=== PATIENT | female | born 1975 | race Caucasian/White ===

== ENCOUNTER 2020-01-20 14:05 | Outpatient (REF) | payer OTHER, SELFPAY | END 2020-01-20 14:06 | disposition home or self-care (01) | LOC: HO.LNP 14:05 | PROVIDERS: Visit Provider Internal Medicine | DX: Z20.828 Contact with and (suspected) exposure to other viral communicable diseases (principal) | CPT/HCPCS: U0003 ==

== ENCOUNTER 2020-02-24 17:38 | Outpatient (REF) | payer OTHER, SELFPAY | END 2020-02-24 17:39 | disposition home or self-care (01) | LOC: HO.LNP 17:38 | PROVIDERS: Visit Provider Internal Medicine | DX: Z20.822 Contact with and (suspected) exposure to COVID-19 (principal) | CPT/HCPCS: U0003 ==

== ENCOUNTER 2020-08-23 08:07 | Outpatient (REF) | payer BC, SELFPAY ==
[2020-08-25 21:27] LABS: HPV mRNA E6/E7 rflx Not Detected (Not Detected)
== END 2020-08-23 08:08 | disposition home or self-care (01) ==
LOC: HO.LAB 08:07
PROVIDERS: PCP Internal Medicine; Visit Provider Obstetrics & Gynecology
DX: Z01.419 Encounter for gynecological examination (general) (routine) without abnormal findings (principal); Z90.710 Acquired absence of both cervix and uterus
CPT/HCPCS: 87624; 88142

== ENCOUNTER 2020-09-17 15:25 | Outpatient (REF) | payer BC, SELFPAY ==
--- NOTE | ~2020-09-17 | MM_ITS ---
EXAMINATION: MM SCREENING DIGITAL BREAST TOMOSYNTHESIS, BILATERAL CLINICAL INFORMATION: Screening. Asymptomatic. Benign left stereotactic biopsy 03/15/2018 (breast parenchyma with fibrocystic changes, usual ductal hyperplasia, stromal fibrosis and microcalcifications). The lifetime risk of breast cancer based on the Tyrer-Cuzick Model is 23%. COMPARISON: Mammography: 09/12/2019, 03/15/2019 TECHNIQUE: Digital breast tomosynthesis is performed in both the craniocaudal and mediolateral oblique views along with computer-aided detection (CAD). Synthesized 2D images are generated from the tomosynthesis. FINDINGS: The breasts are heterogeneously dense, which may obscure small masses (ACR BI-RADS breast composition Category c). There are no significant masses, abnormal calcifications, or other abnormalities. There is biopsy clip marker mid inner left breast. The axilla and skin contours are unremarkable. MM/MM tomosynthesis screening BI IMPRESSION: No mammographic evidence of malignancy. ASSESSMENT: BI-RADS 1: Negative RECOMMENDATION: 1. Routine annual mammography screening. 2. The lifetime risk of breast cancer based on the Tyrer-Cuzick Model is 23%. Additional annual adjunct screening with breast MRI may be of benefit in women with a risk score of 20% or greater. This patient's information was entered into a reminder system with a target due date for their next mammogram.
== END 2020-09-17 15:26 | disposition home or self-care (01) ==
LOC: HO.MAMMO 15:25
PROVIDERS: Visit Provider Internal Medicine
DX: Z12.31 Encounter for screening mammogram for malignant neoplasm of breast (principal)
CPT/HCPCS: 77063; 77067

== ENCOUNTER 2020-10-04 11:17 | Outpatient (REF) | payer BC, SELFPAY ==
--- NOTE | ~2020-10-04 | MR_ITS ---
EXAMINATION: MR BREAST WITHOUT AND WITH CONTRAST, BILATERAL CLINICAL INFORMATION: 45-year-old for high-risk screening, lifetime is 23%. Status post benign stereotactic biopsy, left breast. COMPARISON: Correlation to mammogram of 09/17/2020 TECHNIQUE: Imaging was performed with a dedicated breast coil. Prior to the administration of contrast, bilateral axial T1 and bilateral axial T2 weighted sequences were obtained. After the uneventful administration of?6 mL of Gadavist, dynamic contrast-enhanced VIBRANT series through the breasts in the axial plane were performed. Subtracted images were performed and reviewed. A delayed sagittal sequence through both breasts was acquired. Additionally, CAD post-processing, including maximum intensity projections, 3-D reconstructions and kinetic analysis, were performed an independent workstation and reviewed by the interpreting radiologist is a portion of this exam. FINDINGS: The patient's breast tissue is extremely dense. The patient's fibroglandular tissue demonstrates significant background enhancement. LEFT BREAST: There is significant background enhancement with multiple foci of enhancement throughout the breast which significantly limits the overall sensitivity of this examination. Many of these are T2 bright consistent with a benign process. There is a susceptibility artifact in the 8 'clock position, 4.4 cm from the nipple. There is no associated enhancement. There are no areas of mass or nonmass enhancement suspicious of malignancy and no secondary signs of malignancy. There are multiple T2 bright foci in small masses throughout the breast consistent with cysts. There are no additional findings on kinetic curve analysis. RIGHT BREAST: Similar to the contralateral breast, there is significant background enhancement with multiple foci of enhancement demonstrating subthreshold and progressive-type kinetics. There are no areas of mass or nonmass enhancement suspicious of malignancy and no secondary signs. There are also multiple oval T2 bright foci and masses/cysts, the largest is in the 12 o'clock position 6.0 cm from the nipple measuring 0.6 cm consistent with a cyst. There are no additional findings on kinetic curve analysis. There is no suspicious internal mammary chain or axillary adenopathy. Limited views of the chest and abdomen are unremarkable. MR/MR breast BI wo/w con IMPRESSION: Significant background enhancement with multiple foci of enhancement bilaterally which limits the overall sensitivity of this examination. No specific MR findings suspicious of malignancy. ASSESSMENT: LEFT BREAST: BI-RADS 2 - Benign RIGHT BREAST: BI-RADS 2 - Benign RECOMMENDATIONS: Routine mammographic imaging as per most recent study. Bilateral breast ultrasound should also be obtained in light of the overall breast tissue density. MRI as per high-risk protocol.
== END 2020-10-04 11:18 | disposition home or self-care (01) ==
LOC: HO.MRI 11:17
PROVIDERS: PCP Internal Medicine; Visit Provider Obstetrics & Gynecology
DX: Z12.39 Encounter for other screening for malignant neoplasm of breast (principal); Z91.89 Other specified personal risk factors, not elsewhere classified
CPT/HCPCS: 77049; A9585

== ENCOUNTER 2020-11-07 14:58 | Outpatient (REF) | payer BC, SELFPAY ==
--- NOTE | ~2020-11-07 | XR_ITS ---
EXAMINATION: XR PELVIS CLINICAL INFORMATION: Left SI joint pain. COMPARISON: No similar priors. TECHNIQUE: AP view of the pelvis. FINDINGS: The bones and soft tissues are normal. No fracture. Sacroiliac and hip joints are normal. Pubic symphysis is normal. No abnormal soft tissue calcifications. XR/XR pelvis 1-2V IMPRESSION: Normal pelvis.
[2020-11-07 15:16] LABS: MANUAL DIFF FLAG NO
[2020-11-07 15:19] LABS: Basophils Percent Auto 0.4 % (0-2); Eosinophils Percent Auto 0.2 % (0-4); Hematocrit 39.2 % (37-47); Hemoglobin 12.5 g/dl (12.0-16.0); Imm Gran Abs Auto 0.08 X10*3/uL (0.00-0.03); Imm Gran Pct Auto 0.9 % (0.0-0.4); Lymphocytes Absolute Auto 1.7 X10*3/uL (1.2-4.9); Lymphocytes Percent Auto 17.9 % (20-40); Mean Corpuscular HGB Conc 31.9 g/dl (31.0-35.0); Mean Corpuscular Volume 87.9 fL (80-98); Mean Platelet Volume 9.8 fL (9.4-12.3); Monocytes Absolute Auto 0.5 X10*3/uL (0.1-1.2); Monocytes Percent Auto 5.7 % (2-11); Neutrophils Percent Auto 74.9 % (45-73); Platelet Count 366 X10*3/uL (160-400); Red Blood Count 4.46 X10*6/uL (4.20-5.50); Red Cell Distribution Width 12.8 % (11.0-16.0); White Blood Count 9.3 X10*3/uL (4.8-10.8)
[2020-11-07 15:47] LABS: Alanine Aminotransferase 15 U/L (0-31); Albumin Level 4.8 g/dL (3.5-5.0); Alkaline Phosphatase 51 U/L (39-117); Anion Gap 11 (12-20); Aspartate Amino Transferase 15 U/L (5-31); Bilirubin Total 0.4 mg/dL (0.0-1.0); Blood Urea Nitrogen 13 mg/dL (9-16); C Reactive Protein 0.23 mg/dL (< or = 0.50); Calcium 10.1 mg/dL (8.4-10.2); Carbon Dioxide 27 mmol/L (22-29); Chloride 106 mmol/L (96-108); Estimated Glomerular Filt Rate > 60; Glucose Random 93 mg/dL (60-115); Potassium 5.1 mmol/L (3.3-5.1); Sodium 139 mmol/L (135-145); Total Protein 7.3 g/dL (6.5-8.0)
[2020-11-07 16:20] LABS: Appearance Urine CLEAR; Color Urine STRAW; Glucose Urine UA NEG (NEG); Leukocyte Esterase Urine NEG (NEG); Nitrite Urine NEG (NEG); Specific Gravity - Urine <= 1.005 (1.005-1.025); Urine Blood NEG (NEG); Urine Ketones NEG (NEG); Urine Protein NEG (NEG-TRACE)
== END 2020-11-07 14:59 | disposition home or self-care (01) ==
LOC: HO.XRAY 14:58
PROVIDERS: PCP Internal Medicine; Visit Provider Internal Medicine
DX: M53.3 Sacrococcygeal disorders, not elsewhere classified (principal); R10.32 Left lower quadrant pain; R30.0 Dysuria
CPT/HCPCS: 36415; 72170; 80053; 81003; 85025; 86140; 87086

== ENCOUNTER 2021-02-05 10:33 | Outpatient (REF) | payer BC, SELFPAY ==
[2021-02-05 14:26] LABS: MANUAL DIFF FLAG NO
[2021-02-05 14:37] LABS: Basophils Percent Auto 0.7 % (0-2); Eosinophils Percent Auto 0.4 % (0-4); Hematocrit 37.2 % (37.0-47.0); Hemoglobin 11.7 g/dl (12.0-16.0); Imm Gran Abs Auto 0.04 X10*3/uL (0.00-0.03); Imm Gran Pct Auto 0.7 % (0.0-0.4); Lymphocytes Absolute Auto 1.3 X10*3/uL (1.2-4.9); Lymphocytes Percent Auto 22.7 % (20-40); Mean Corpuscular HGB Conc 31.5 g/dl (31.0-35.0); Mean Corpuscular Hemoglobin 27.6 pg (27.0-33.0); Mean Corpuscular Volume 87.7 fL (80.0-98.0); Monocytes Absolute Auto 0.5 X10*3/uL (0.1-1.2); Monocytes Percent Auto 9.6 % (2-11); Neutrophils Absolute Auto 3.7 x10*3/uL (2.0-8.3); Neutrophils Percent Auto 65.9 % (45-73); Platelet Count 311 X10*3/uL (160-400); Red Blood Count 4.24 X10*6/uL (4.20-5.50); Red Cell Distribution Width 13.2 % (11.0-16.0); White Blood Count 5.6 X10*3/uL (4.8-10.8)
[2021-02-05 14:48] LABS: Appearance Urine CLEAR; Color Urine YELLOW; Glucose Urine UA NEG (NEG); Leukocyte Esterase Urine NEG (NEG); Nitrite Urine NEG (NEG); Specific Gravity - Urine 1.025 (1.005-1.025); Urine Blood NEG (NEG); Urine Ketones 5 MG/DL (NEG); Urine Protein NEG (NEG-TRACE)
[2021-02-05 15:18] LABS: Influenza A PCR NEGATIVE (Negative); Influenza B PCR NEGATIVE (Negative); Resp Syncy Virus RNA Qual PCR NEGATIVE (Negative); SARS COV2 PCR INHOUSE POSITIVE (Negative)
[2021-02-05 15:23] LABS: Alanine Aminotransferase 14 U/L (0-31); Albumin Level 4.3 g/dL (3.5-5.0); Alkaline Phosphatase 52 U/L (39-117); Anion Gap 12 (12-20); Aspartate Amino Transferase 16 U/L (5-31); Bilirubin Total 0.6 mg/dL (0.0-1.0); Blood Urea Nitrogen 8 mg/dL (9-16); C Reactive Protein 2.19 mg/dL (< or = 0.50); Calcium 9.4 mg/dL (8.4-10.2); Carbon Dioxide 28 mmol/L (22-29); Chloride 104 mmol/L (96-108); Estimated Glomerular Filt Rate > 60; Glucose Random 89 mg/dL (60-115); Potassium 3.8 mmol/L (3.3-5.1); Sodium 140 mmol/L (135-145); Total Protein 6.9 g/dL (6.5-8.0)
== END 2021-02-05 10:34 | disposition home or self-care (01) ==
LOC: HO.10HDL 10:33
PROVIDERS: Visit Provider Internal Medicine
DX: Z20.822 Contact with and (suspected) exposure to COVID-19 (principal); R05.9 Cough, unspecified; J45.909 Unspecified asthma, uncomplicated; M54.9 Dorsalgia, unspecified; J31.0 Chronic rhinitis
CPT/HCPCS: 0241U; 80053; 81003; 85025; 86140; 87086

== ENCOUNTER 2021-06-28 13:57 | Outpatient (REF) | payer OTHER, BC, SELFPAY ==
[2021-06-28 14:14] LABS: MANUAL DIFF FLAG NO
[2021-06-28 14:32] LABS: Basophils Percent Auto 0.5 % (0-2); Eosinophils Absolute Auto 0.1 X10*3/uL (0.0-0.4); Eosinophils Percent Auto 0.7 % (0-4); Hematocrit 35.5 % (37.0-47.0); Hemoglobin 11.5 g/dl (12.0-16.0); Imm Gran Abs Auto 0.05 X10*3/uL (0.00-0.03); Imm Gran Pct Auto 0.7 % (0.0-0.4); Lymphocytes Percent Auto 26.9 % (20-40); Mean Corpuscular HGB Conc 32.4 g/dl (31.0-35.0); Mean Corpuscular Hemoglobin 28.3 pg (27.0-33.0); Mean Corpuscular Volume 87.4 fL (80.0-98.0); Mean Platelet Volume 10.3 fL (9.4-12.3); Monocytes Absolute Auto 0.5 X10*3/uL (0.1-1.2); Monocytes Percent Auto 6.2 % (2-11); Neutrophils Absolute Auto 4.9 x10*3/uL (2.0-8.3); Platelet Count 364 X10*3/uL (160-400); Red Blood Count 4.06 X10*6/uL (4.20-5.50); Red Cell Distribution Width 13.2 % (11.0-16.0); White Blood Count 7.6 X10*3/uL (4.8-10.8)
[2021-06-28 15:09] LABS: Alanine Aminotransferase 19 U/L (0-31); Albumin Level 4.3 g/dL (3.5-5.0); Alkaline Phosphatase 46 U/L (39-117); Anion Gap 12 (12-20); Aspartate Amino Transferase 20 U/L (5-31); Bilirubin Total 0.4 mg/dL (0.0-1.0); Blood Urea Nitrogen 14 mg/dL (9-16); C Reactive Protein 0.38 mg/dL (< or = 0.50); Calcium 9.9 mg/dL (8.4-10.2); Carbon Dioxide 27 mmol/L (22-29); Chloride 105 mmol/L (96-108); Estimated Glomerular Filt Rate > 60; Glucose Random 84 mg/dL (60-115); Potassium 4.1 mmol/L (3.3-5.1); Sodium 140 mmol/L (135-145)
[2021-06-28 15:11] LABS: Erythrocyte Sedimentation Rate 6 MM/HR (0-20)
[2021-06-28 15:19] LABS: Free T4 (Free Thyroxine) 0.87 ng/dL (0.71-1.85); Thyroid Stimulating Hormone 1.58 uIU/mL (0.32-4.0)
[2021-06-28 15:23] LABS: Vitamin B12 892 pg/mL (200-900)
== END 2021-06-28 13:58 | disposition home or self-care (01) ==
LOC: HO.LAB 13:57
PROVIDERS: PCP Internal Medicine; Visit Provider Internal Medicine
DX: M54.9 Dorsalgia, unspecified (principal); J45.909 Unspecified asthma, uncomplicated
CPT/HCPCS: 36415; 80053; 82607; 84439; 84443; 85025; 85652; 86140

== ENCOUNTER 2021-09-25 09:20 | Outpatient (REF) | payer SELFPAY ==
--- NOTE | ~2021-09-25 | MM_ITS ---
EXAMINATION: MM SCREENING DIGITAL BREAST TOMOSYNTHESIS, BILATERAL CLINICAL INFORMATION: Screening. Asymptomatic. Benign left stereotactic biopsy 2018 (breast parenchyma with fibrocystic changes, usual ductal hyperplasia, stromal fibrosis and microcalcifications). The lifetime risk of breast cancer based on the Tyrer-Cuzick Model is 7%. COMPARISON: Mammography: 09/17/2020, 09/12/2019, 08/12/2018, 03/09/2018, 02/26/2018; MR bilateral breasts 10/04/2020. TECHNIQUE: Digital breast tomosynthesis is performed in both the craniocaudal and mediolateral oblique views along with computer-aided detection (CAD). Synthesized 2D images are generated from the tomosynthesis. FINDINGS: The breasts are heterogeneously dense, which may obscure small masses (ACR BI-RADS breast composition Category c). There are no significant masses, abnormal calcifications, or other abnormalities. Parenchymal pattern is similar to prior studies. There is no developing density or architectural abnormality. There is a biopsy clip marker mid medial left breast. The axilla and skin contours are unremarkable. No significant changes. MM/MM tomosynthesis screening BI IMPRESSION: No mammographic evidence of malignancy. ASSESSMENT: BI-RADS 1: Negative RECOMMENDATION: Routine annual mammography screening. This patient's information was entered into a reminder system with a target due date for their next mammogram.
== END 2021-09-25 09:21 | disposition home or self-care (01) ==
LOC: HO.MAMMO 09:20
PROVIDERS: Visit Provider Internal Medicine
DX: Z12.31 Encounter for screening mammogram for malignant neoplasm of breast (principal)
CPT/HCPCS: 77063; 77067

== ENCOUNTER 2021-11-03 20:48 | Emergency (ER) | payer SELFPAY ==
[2021-11-03 21:11] VITALS: BP 124/68; PULSE 84; RESP 16; TEMP 37.3; O2SAT 97; BMI 26.4
[2021-11-03] MEDS: Ibuprofen 800 MG TABLET PO (21:21)
== END 2021-11-04 00:59 | disposition left against medical advice (07) ==
PROVIDERS: Emergency Provider Emergency Medicine; PCP Internal Medicine
DX: K08.89 Other specified disorders of teeth and supporting structures (principal)
CPT/HCPCS: 99282

== ENCOUNTER → 2022-01-13 11:44 | Outpatient (BNVA) | payer SELFPAY | PROVIDERS: PCP Internal Medicine; Visit Provider Advanced Practice Midwife | DX: R23.2 Flushing (principal); N89.8 Other specified noninflammatory disorders of vagina | CPT/HCPCS: 99212 ==

== ENCOUNTER 2022-01-14 07:44 | Outpatient (REF) | payer OTHER, SELFPAY ==
[2022-01-14 10:30] LABS: TSH reflex Free T4 1.69 uIU/mL (0.32-4.0)
[2022-01-15 07:19] LABS: Follicle Stimulating Hormone 28.9 mIU/mL
== END 2022-01-14 07:45 | disposition home or self-care (01) ==
LOC: HO.LAB 07:44
PROVIDERS: PCP Internal Medicine; Visit Provider Advanced Practice Midwife
DX: R23.2 Flushing (principal)
CPT/HCPCS: 36415; 83001; 84443

== ENCOUNTER 2022-01-20 10:46 | Outpatient (REF) | payer OTHER, SELFPAY ==
--- NOTE | ~2022-01-20 | XR_ITS ---
EXAMINATION: XR CHEST CLINICAL INFORMATION: Rhonchi COMPARISON: 08/01/2017 TECHNIQUE: 2 views of the chest were obtained. FINDINGS: No significant abnormality is noted involving the heart, lungs, mediastinum, bony thorax or soft tissues. XR/XR chest 2V IMPRESSION: Unremarkable examination.
== END 2022-01-20 10:47 | disposition home or self-care (01) ==
LOC: HO.XRAY 10:46
PROVIDERS: PCP Internal Medicine; Visit Provider Internal Medicine
DX: J45.909 Unspecified asthma, uncomplicated (principal); R05.9 Cough, unspecified
CPT/HCPCS: 71046

== ENCOUNTER → 2022-03-03 09:55 | Outpatient (BNVA) | payer OTHER, SELFPAY | PROVIDERS: PCP Internal Medicine; Visit Provider Advanced Practice Midwife | DX: Z13.89 Encounter for screening for other disorder (principal) ==

== ENCOUNTER 2022-08-18 18:06 | Emergency (ER) | payer OTHER, SELFPAY ==
[2022-08-18 18:06] VITALS: BP 127/79; PULSE 84; RESP 18; TEMP 36.4; O2SAT 99; BMI 26.4
--- NOTE | 2022-08-18 18:07 | ED_ITS ---
HPI - General Adult General Chief complaint: Wound/Laceration Stated complaint: finger lac Time Seen by Provider: 08/18/22 18:30 Source: patient Mode of arrival: ambulatory Limitations: no limitations History of Present Illness HPI narrative: Patient is a 47 year old assigned female at with no reported medical history presenting to the emergency department today with a laceration to her right index finger. Patient states that she was washing dishes when she cut her finger. Patient states that she is up to date on tetanus. Patient denies any dizziness, lightheadedness, abdominal pain, nausea, vomiting, fever, chills, blurry vision, double vision, loss of vision, chest pain, difficulty breathing, shortness of breath, back pain, night sweats, pain with urination, increased urinary frequency, increased urinary urgency, blood in her urine or stool, syncope or a near syncopal episode, bowel incontinence, bladder incontinence, bowel retention, bladder retention, or any other complaints at this time. Onset (ago): minute(s) Location: right (index finger) Radiation: non-radiation Severity: mild Severity scale (1-10): 3 Quality: dull Pain Consistency: constant Relieving factors: none Exacerbating factors: none Associated symptoms: denies other symptoms Treatments prior to arrival: none Related Data Home Medications Medication Instructions Recorded Confirmed albuterol sulfate 90 mcg/actuation 2 puff inhalation QID PRN 01/13/22 aerosol inhaler gabapentin 300 mg capsule 300 mg PO TID PRN pain 01/13/22 ipratropium 0.5 mg-albuterol 3 mg ml inhalation BID PRN 01/13/22 (2.5 mg base)/3 mL nebulization soln Previous Rx's Medication Instructions Recorded amoxicillin 875 mg-potassium 1 tab PO BID 7 days #14 tabs 08/18/22 clavulanate 125 mg tablet Allergies Allergy/AdvReac Type Severity Reaction Status Date / Time ciprofloxacin [From CIPRO] Allergy Severe SWELLING Verified 08/18/22 18:06 AND NUMBNESS Review of Systems Constitutional: Constitutional: Reports no additional constitutional complaints, Denies chills, Denies fever(s) and Denies night sweats Eyes: Eyes: Reports no additional eye complaints, Denies blurry vision, Denies change in vision, Denies diplopia, Denies eye discharge, Denies loss of vision and Denies eye pain ENT: Denies dizziness Cardiovascular: Cardiovascular: Reports no additional cardiovascular compl aints, Denies chest pain, Denies lightheadedness, Denies Loss of Consciousness and Denies dyspnea Respiratory: Respiratory: Reports no additional respiratory complaints and Denies dyspnea Gastrointestinal: Gastrointestinal: Reports no additional gastrointestinal complaints, Denies abdominal pain, Denies melena, Denies hematochezia, Denies change in bowel habits and Denies change in stool character Genitourinary: Genitourinary: Denies hematuria, Denies urinary frequency, Denies dysuria, Denies urinary incontinence, Denies urinary hesitancy and Denies urinary urgency Musculoskeletal: Musculoskeletal: Reports no additional musculoskeletal complaints, Denies numbness and Denies tingling Integumentary/Breasts: Comments: laceration to right index finger Neurologic: Denies dizziness, Denies loss of vision, Denies numbness and Denies tingling Psychiatric: Psychiatric: Reports no additional psychiatric complaints Endocrine: Endocrine: Reports no additional endocrine complaints Hematologic/Lymphatic: Hematologic/Lymphatic: Reports no additional hematologic/lymphatic complaints Allergic/Immunologic: Allergic/Immunologic: Reports no additional allergic/immunologic complaints [facility] Past Medical History Attestation statement: The following information was validated with the patient. Source: old records reviewed and nursing notes reviewed Medical History Cervical dysplasia Complex ovarian cyst Kidney stone Vaginal lump Surgical History H/O LEEP H/O: hysterectomy Family History Family History Mother Asthma Maternal Aunt Breast cancer Maternal Grandmother Breast cancer Social History Social History Household Members: Spouse and Children Housing: House Alcohol intake: current Alcohol intake frequency: holidays/special occasions only Patient Tobacco Use Status: Never used Tobacco Advance Directives: No Advance Directives Information Provided: Yes service: No Current occupational status: employed 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 Sexual orientation: Straight/Heterosexual Gender identity: Female Physical Exam ED Vital Signs: Vital Signs - 24 hr 08/18/22 18:06 Temperature 97.6 F Pulse Rate 84 Respiratory Rate 18 Blood Pressure 127/79 Pulse Oximetry 99 Oxygen Delivery Method Room Air BMI result Body Mass Index 26.4 Const General: cooperative, no acute distress, alert and awake Nutritional Appearance: well nourished Orientation/consciousness: patient oriented x3 Limitations: no limitations HENMT Head: Yes normal to inspection and Yes atraumatic Ears: hearing grossly normal bilaterally and external ears normal General nose exam: Normal external nose present, no nasal discharge noted and no epistaxis Face and sinus: Yes normal facial exam, No abrasion and No laceration Mouth: Normal oral and palatal mucosa present, no drooling and no muffled voice Eyes General: appearance normal, both eyes and all related structures Periorbital: periorbital findings normal Eyelids: Yes eyelids normal Conjunctivae: conjunctivae normal Pupils: Equal, round and reactive pupils present EOM: EOMs intact bilaterally Neck Neck: Yes normal visual inspection, Yes full ROM and Yes no lymphadenopathy Chest Chest palpation & inspection: normal inspection of the chest Resp Effort & Inspection: normal respiratory effort and able to speak in complete sentences GI Inspection: Yes normal to inspection Neuro General: patient oriented x3 and moves all extremities Cranial nerves: Yes Equal, round and reactive pupils present Cognition (Neuro): normal cognition Motor exam (neuro): 5/5 motor strength present throughout Sensory Exam: Normal double simultaneous stimulation for sensation Coordination: bimusp-pa-ieis test normal Extrem Other: 1cm laceration to the right dorsal index finger - no active bleeding General: Yes full ROM and Yes capillary refill normal Psych Appearance: grossly normal Mental Status: mental status grossly normal Affect: normal affect Attitude: cooperative Thought process: Normal thought process present Thought content: Normal thought content present Insight: Good insight present (Psych) Course Course Course Narrative: This is an RME: Additional HPI, ROS, PE not included below will be deferred to primary provider. 47 year old female presents with laceration to right pointer finger cut by glass when washing dishes. Not on thinners. Plan: Wound care Procedures Laceration Laceration 1: Site: other (index finger) Side (If applicable): right Size (cm): 1 Description: linear Depth: simple, single layer Local Anesthetic: lidocaine 1% Pre-repair: wound explored, irrigated extensively and deep structures intact Skin layer closed with: other (dermabond) Size (cm): other (dermabond) Medical Decision Making Medical Decision Making MDM Narrative: Patient is a 47 year old assigned female at with no reported medical history presenting to the emergency department today with a right index finger laceration. Patient's physical exam was as noted in the physical exam portion of this chart. I explained my physical exam findings to the patient. I answered all questions asked by the patient. Patient's laceration was closed with skin adhesive without incident. Patient's PMS was intact prior to and after laceration repair. I stressed the importance of the patient taking her medication as prescribed. I stressed the importance of the patient following up with her primary care provider. I stressed the importance of the patient performing daily wound checks and dressing changes. I stressed the importance of the patient not soaking the affected area. I stressed the importance of the patient returning to the emergency department immediately if her symptoms were to worsen or if she were to develop any dizziness, shortness of breath, difficulty breathing, chest pain, blurry vision, loss of vision, nausea, vomiting, abdominal pain, fever, chills, back pain, or any other complaints. Patient verbalized agreement and understanding with this treatment plan and discharge. Differential Diagnosis Differential Diagnoses: The differential diagnosis associated with the presentation includes Laceration Abrasion Prescription Management I considered prescription management with: Antibiotic (patient prescribed an antibiotic given the injury happened in dirty dish water) Discharge Plan Discharge Clinical Impression: Laceration Patient Disposition: Home, Self-Care Instructions: Skin Adhesive Care (ED) Additional Instructions: Take your antibiotics as prescribed. Do NOT get the affected area wet. Do NOT soak the affected area. Perform daily wound checks and dressing changes. Follow up with your primary care provider. Return to the emergency department immediately if your symptoms worsen or if you develop any dizziness, shortness of breath, difficulty breathing, chest pain, blurry vision, loss of vision, nausea, vomiting, abdominal pain, fever, chills, back pain, or any other complaints. Prescriptions: New amoxicillin-pot clavulanate 875-125 mg tablet 1 tab PO BID 7 Days Qty: 14 0RF No Action gabapentin 300 mg capsule 300 mg PO TID PRN (Reason: pain) ipratropium-albuterol 0.5 mg-3 mg(2.5 mg base)/3 mL solution for nebulization inhalation BID PRN albuterol sulfate 90 mcg/actuation HFA aerosol inhaler 2 puff inhalation QID PRN Referrals: Jefe Luna MD [Primary Care Provider] - Stand Alone Forms: Work/School Release Print Language: Macanese
== END 2022-08-18 19:16 | disposition home or self-care (01) ==
PROVIDERS: Emergency Provider Student in an Organized Health Care Education/Training Program; PCP Internal Medicine
DX: S61.210A Laceration without foreign body of right index finger without damage to nail, initial encounter (principal); M79.641 Pain in right hand; W26.9XXA Contact with unspecified sharp object(s), initial encounter; Y93.9 Activity, unspecified; Y92.9 Unspecified place or not applicable; Y99.9 Unspecified external cause status; Z79.899 Other long term (current) drug therapy
CPT/HCPCS: 12001; 99282; 99283

== ENCOUNTER 2022-11-11 14:50 | Outpatient (REF) | payer OTHER, SELFPAY ==
[2022-11-11 15:56] LABS: MANUAL DIFF FLAG NO
[2022-11-11 16:34] LABS: Basophils Percent Auto 0.6 % (0-2); Eosinophils Absolute Auto 0.1 X10*3/uL (0.0-0.4); Eosinophils Percent Auto 0.7 % (0-4); Hematocrit 39.2 % (37.0-47.0); Hemoglobin 12.4 g/dl (12.0-16.0); Imm Gran Abs Auto 0.04 X10*3/uL (0.00-0.03); Imm Gran Pct Auto 0.6 % (0.0-0.4); Lymphocytes Percent Auto 29.5 % (20-40); Mean Corpuscular HGB Conc 31.6 g/dl (31.0-35.0); Mean Corpuscular Hemoglobin 27.2 pg (27.0-33.0); Mean Platelet Volume 10.3 fL (9.4-12.3); Monocytes Absolute Auto 0.6 X10*3/uL (0.1-1.2); Monocytes Percent Auto 8.9 % (2-11); Neutrophils Percent Auto 59.7 % (45-73); Platelet Count 351 X10*3/uL (160-400); Red Blood Count 4.56 X10*6/uL (4.20-5.50); Red Cell Distribution Width 13.1 % (11.0-16.0); White Blood Count 6.7 X10*3/uL (4.8-10.8)
[2022-11-11 17:33] LABS: Erythrocyte Sedimentation Rate 7 MM/HR (0-20)
[2022-11-14 02:24] LABS: Immunoglobulin E 63 kU/L (<OR=114)
[2022-11-14 14:00] LABS: IgA 134 mg/dL (47-310); IgG 1066 mg/dL (600-1640); IgM 66 mg/dL (50-300)
[2022-11-20 15:35] LABS: Asperg fumigatus Precip Abs NEGATIVE (NEGATIVE); Micropoly faeni Abs NEGATIVE (NEGATIVE); Pigeon serum Abs NEGATIVE (NEGATIVE); Saccharo pora viridis Abs NEGATIVE (NEGATIVE); Thermo candidus Abs NEGATIVE (NEGATIVE); Thermoa vulgaris #1 NEGATIVE (NEGATIVE)
== END 2022-11-11 14:51 | disposition home or self-care (01) ==
LOC: HO.LAB 14:50
PROVIDERS: PCP Internal Medicine; Visit Provider Hospitalist
DX: J44.89 Other specified chronic obstructive pulmonary disease (principal); J45.40 Moderate persistent asthma, uncomplicated; J30.9 Allergic rhinitis, unspecified; R91.8 Other nonspecific abnormal finding of lung field; Z79.899 Other long term (current) drug therapy
CPT/HCPCS: 36415; 82784; 82785; 85025; 85652; 86003; 86331; 86606; 86609

== ENCOUNTER 2022-11-11 14:50 | Outpatient (AMB) | payer OTHER, SELFPAY ==
--- NOTE | 2022-11-11 14:51 | A.OFFVIS_ITS ---
Intake Vital Signs 11/11/22 14:54 Height 5 ft 1 in Weight 138 lb 14.259 oz BMI 26.2 BP 124/70 Blood Pressure Location Lt brachial Position Sitting Pulse 82 Pulse Source Pulse Oximeter Pulse Oximetry (%) 98 Oxygen Delivery Method Room Air Intake Visit Reasons: Asthma Equipment Tech Required: No Allergies ciprofloxacin [From CIPRO] Allergy (Severe, Verified 11/11/22 15:03) SWELLING AND NUMBNESS HPI HPI Comments History of Present Illness Details The patient is here for pulmonary evaluation. The patient is a 47 year woman with a known history of asthma who apparently has been having worsening respiratory symptoms for the last year so. She is not sure exactly what triggers her asthma. However, she typically uses her rescue inhaler multiple times a week. In addition to that she has required antibiotics in addition to prednisone in the past few months. In her home the patient does have multiple pets including blood birds, dogs and cats. The patient has had him for more than 5 years and she really has noticed any changes with her breathing. The patient denies any mold in the house. Denies any exposure 20 fumes or toxins in her place of work or in her home. She was placed on Flovent inhaler but she has not seen a significant improvement. On further evaluation appears that she had an x-ray back in January 2022 which we personally reviewed demonstrating no acute disease. She has not had any allergy testing or pulmonary function studies. Will go ahead and optimize her respiratory therapy by switching her over to a combination inhaler. I did recommend she use a spacer. Also she is going to monitor closely peak flows. When she has her blood work in addition to allergy testing and PFTs will follow-up review those results. 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 Sexual orientation: Straight/Heterosexual Gender identity: Female Review of Systems Const Denies fatigue and Denies fever(s) Eyes Reports no additional complaints ENT Reports nasal congestion Card Denies chest pain Resp Reports cough and Reports wheezing GI Reports no additional complaints Musc Reports no additional complaints Skin/Breast Denies rash Neuro Reports no additional complaints Endo Denies fatigue Fletcher/Lymph Denies lymphadenopathy Aller/Immun Reports wheezing Physical Exam Vital Signs: Last Vital Signs Pulse 82 11/11/22 14:54 BP 124/70 11/11/22 14:54 Pulse Ox 98 11/11/22 14:54 Oxygen Delivery Method Room Air 11/11/22 14:54 BMI result Body Mass Index 26.2 Const General: comfortable HEENT Head: Yes atraumatic Neck Neck: Yes supple Chest Chest palpation & inspection: normal inspection of the chest Resp Effort & Inspection: normal respiratory effort Auscultation: clear to auscultation bilaterally Cardio Heart sounds: S1 normal heart sound present and S2 normal heart sound present GI Palpation (GI): Soft to palpation Skin General skin exam: no rashes or lesions noted Extrem General: Yes no clubbing, cyanosis or edema Assessment & Plan Assessment & Plan (1) Chronic allergic rhinitis: Code(s): J30.9 - Allergic rhinitis, unspecified (2) Asthma: Code(s): J45.909 - Unspecified asthma, uncomplicated Qualifiers: Asthma severity: moderate Asthma persistence: persistent Asthma complication type: uncomplicated Qualified Code(s): J45.40 - Moderate persistent asthma, uncomplicated Plan stop Flovent Start Symbicort with spacer MATTHEW as needed Bloodwork / allergy testing Consider singulair PFTs peak flow provided F/U 2 months Orders: Orders Erythrocyte Sedimentation Rate Today J30.9 - Allergic rhinitis, unspecified, J45.909 - Unspecified asthma, uncomplicated Immunoglobulins,IgG IgA IgM Today J30.9 - Allergic rhinitis, unspecified, J45.909 - Unspecified asthma, uncomplicated PFT pulmonary function test Today J45.909 - Unspecified asthma, uncomplicated Rast Allergen Today J30.9 - Allergic rhinitis, unspecified, J45.909 - Unspecified asthma, uncomplicated Complete Blood Count Auto Diff Today J30.9 - Allergic rhinitis, unspecified, J45.909 - Unspecified asthma, uncomplicated Hypersensitive Pneumonitis Prf Today J30.9 - Allergic rhinitis, unspecified, J45.909 - Unspecified asthma, uncomplicated, R91.8 - Other nonspecific abnormal finding of lung field Immunoglobulin E Today J30.9 - Allergic rhinitis, unspecified, J45.909 - Unspe cified asthma, uncomplicated Medications: New budesonide-formoterol 160-4.5 mcg/actuation (Symbicort) 2 puffs inhalation BID 30 days 10.2 grams 11RF J44.89 - Other specified chronic obstructive pulmonary disease inhalational spacing device (Aerochamber Plus Flow-Vu) As directed 1 ea 0RF Coding Level of Care Code New Pt Level 4 (02370) Diagnoses Chronic allergic rhinitis J30.9 Moderate persistent asthma without complication J45.40 Asthma severity: moderate Asthma persistence: persistent Asthma complication type: uncomplicated Time Spent (min) 37
[2022-11-11 14:54] VITALS: BP 124/70; PULSE 82; O2SAT 98; BMI 26.2
== END 2022-11-11 15:24 | disposition home or self-care (01) ==
PROVIDERS: PCP Internal Medicine; Referring Provider Internal Medicine; Visit Provider Hospitalist
DX: J30.9 Allergic rhinitis, unspecified (principal); J45.40 Moderate persistent asthma, uncomplicated
CPT/HCPCS: 99204

== ENCOUNTER 2022-12-22 09:29 | Outpatient (REF) | payer OTHER, SELFPAY ==
--- NOTE | 2022-12-22 10:33 | PFT_ITS ---
Forced vital capacity 94%, FEV1 92%, FEV1/FVC ratio is 79. FEF 25-75 82%. MVV 69%. Post-bronchodilator therapy, there is no significant change. Total lung capacity 77% and residual volume 50%. Diffusion capacity 96%. CONCLUSION: 1. Mild restrictive pulmonary disorder. 2. No significant obstructive airway disorder. 3. No response to bronchodilator therapy. Clinical correlation is recommended. MD EFRAÍN Fay/MODL / [phone]
== END 2022-12-22 09:30 | disposition home or self-care (01) ==
LOC: HO.RESP 09:29
PROVIDERS: PCP Internal Medicine; Visit Provider Hospitalist
DX: J45.909 Unspecified asthma, uncomplicated (principal)
CPT/HCPCS: 94010; 94727; 94729

== ENCOUNTER → 2022-12-22 10:33 | Outpatient (BNV) | payer OTHER, SELFPAY | PROVIDERS: PCP Internal Medicine; Visit Provider Internal Medicine | DX: R06.09 Other forms of dyspnea (principal) | CPT/HCPCS: 94060; 94727; 94729 ==

== ENCOUNTER 2023-01-12 11:02 | Outpatient (AMB) | payer OTHER, SELFPAY ==
[2023-01-12 11:08] VITALS: PULSE 74; O2SAT 98; BMI 26.4
--- NOTE | 2023-01-12 11:08 | A.OFFVIS_ITS ---
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 She is not sure exactly what triggers her asthma. However, she typically uses her rescue inhaler multiple times a week. In addition to that she has required antibiotics in addition to prednisone in the past few months. In her home the patient does have multiple pets including blood birds, dogs and cats. The patient has had him for more than 5 years and she really has noticed any changes with her breathing. The patient denies any mold in the house. Denies any exposure 20 fumes or toxins in her place of work or in her home. She was placed on Flovent inhaler but she has not seen a significant improvement. On further evaluation appears that she had an x-ray back in January 2022 which we personally reviewed demonstrating no acute disease. She has not had any allergy testing or pulmonary function studies. Will go ahead and optimize her respiratory therapy by switching her over to a combination inhaler. I did recommend she use a spacer. Also she is going to monitor closely peak flows. When she has her blood work in addition to allergy testing and PFTs will follow- up review those results. 01/12/2023 the patient is here for pulmon zainab follow-up visit. Overall the patient has been feeling better. She did tolerate the Symbicort well. The patient however gets a little tremulous from it. She can decrease the dose down to 1 puff a day which is reasonable. She is using spacer. The patient also underwent blood work which was all reassuring. No allergies to dogs and cats in her hypersensitive panel is negative for any hypersensitivity reaction to the bird. Still though she needs to be careful around the birds specially with her significant reactive airways. The patient also has a cough at times. The cough is nonproductive in typically exacerbates her breathing. Therefore I did send a Tessalon Carlton that she can use as needed to try to minimize her coughing spells in therefore stabilized breathing. In regards of her PFTs no evidence of any obstruction which is reassuring. The patient will continue with current respiratory therapy will follow-up in a year's time. If her symptoms are no better or worsen she will call for an earlier assessment. [facility] Medical History (System 12/18/22 @ 15:14 by Tracy Evans) Chronic allergic rhinitis Asthma Cervical dysplasia Vaginal lump Complex ovarian cyst Kidney stone Surgical History (System 12/18/22 @ 15:14 by Tracy Evans) H/O LEEP H/O: hysterectomy Family History Mother Asthma Maternal Aunt Breast cancer Maternal Grandmother Breast cancer Social History (System 12/18/22 @ 15:14 by Tracy Evans) Household Members: Spouse and Children Housing: House Alcohol intake: current Alcohol intake frequency: holidays/special occasions only Patient Tobacco Use Status: Never used Tobacco service: No Current occupational status: employed 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 Sexual orientation: Straight/Heterosexual Gender identity: Female Review of Systems Const Denies fatigue and Denies fever(s) Eyes Reports no additional complaints ENT Reports nasal congestion Card Denies chest pain Resp Reports cough and Reports wheezing GI Reports no additional complaints Musc Reports no additional complaints Skin/Breast Denies rash Neuro Reports no additional complaints Endo Denies fatigue Fletcher/Lymph Denies lymphadenopathy Aller/Immun Reports wheezing Physical Exam Vital Signs: Last Vital Signs Pulse 74 01/12/23 11:08 Pulse Ox 98 01/12/23 11:08 Oxygen Delivery Method Room Air 01/12/23 11:08 BMI result Body Mass Index 26.4 Const General: comfortable HEENT Head: Yes atraumatic Neck Neck: Yes supple Chest Chest palpation & inspection: normal inspection of the chest Resp Effort & Inspection: normal respiratory effort Auscultation: clear to auscultation bilaterally Cardio Heart sounds: S1 normal heart sound present and S2 normal heart sound present GI Palpation (GI): Soft to palpation Skin General skin exam: no rashes or lesions noted Extrem General: Yes no clubbing, cyanosis or edema Assessment & Plan Assessment & Plan (1) Chronic allergic rhinitis: Code(s): J30.9 - Allergic rhinitis, unspecified (2) Asthma: Code(s): J45.909 - Unspecified asthma, uncomplicated Qualifiers: Asthma complication type: uncomplicated Asthma persistence: persistent Asthma severity: moderate Qualified Code(s): J45.40 - Moderate persistent asthma, uncomplicated Plan contiune Symbicort with spacer MATTHEW as needed start Luis valentin Consider judiir F/U 12 months Medications: New benzonatate 200 mg PO BID 30 days PRN 60 caps 0RF cough Coding Level of Care Code Est Pt Level 4 (04911) Diagnoses Chronic allergic rhinitis J30.9 Moderate persistent asthma without complication J45.40 Asthma complication type: uncomplicated Asthma persistence: persistent Asthma severity: moderate Time Spent (min) 16
== END 2023-01-12 11:20 | disposition home or self-care (01) ==
PROVIDERS: PCP Internal Medicine; Visit Provider Hospitalist
DX: J30.9 Allergic rhinitis, unspecified (principal); J45.40 Moderate persistent asthma, uncomplicated
CPT/HCPCS: 99214

== ENCOUNTER → 2023-01-12 11:02 | Outpatient (BNVA) | payer OTHER, SELFPAY | PROVIDERS: PCP Internal Medicine; Visit Provider Hospitalist | DX: J44.89 Other specified chronic obstructive pulmonary disease (principal); J45.909 Unspecified asthma, uncomplicated; J30.9 Allergic rhinitis, unspecified ==

== ENCOUNTER 2023-04-09 08:04 | Outpatient (AMB) | payer OTHER, SELFPAY ==
--- NOTE | 2023-04-09 08:26 | MHC.OFFVIS ---
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 Doing well with no concerns. She tries to eat healthy and stays active with exercise. Currently is sexually active w/. Uses Replens prn. She denies vaginal itching and irritation. STI screening offered; she declines. Denies family history of breast, ovarian or colon cancer. Last pap smear 2021, negative. Mammogram: booked 04/2023. 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 Sexual orientation: Straight/Heterosexual Gender identity: Female Female Reproductive History Menstrual Menopause type: surgical Total pregnancies: 4 Full term: 4 Number of Living Children: 4 Date of last pap smear: 08/23/20 (neg pap and hpv) History of abnormal pap smear: Yes (hx leep) Date of Mammogram: 09/25/21 (Birad 1) Review of Systems Const All systems reviewed & are unremarkable except as noted in HPI and below Reports as per HPI Eyes Reports no additional complaints ENT Reports no additional complaints Card Reports no additional complaints Resp Reports no additional complaints GI Reports as per HPI and Reports no additional complaints Reports as per HPI Musc Reports no additional complaints Skin/Breast Reports as per HPI Neuro Reports no additional complaints Psych Reports no additional complaints Endo Reports no additional complaints Fletcher/Lymph Reports no additional complaints Aller/Immun Reports no additional complaints Physical Exam Vital Signs: Last Vital Signs BP 92/60 04/09/23 08:29 BMI result Body Mass Index 27.0 Const General: cooperative, healthy appearing, no acute distress, well developed and alert Orientation/consciousness: patient oriented x3 HEENT Head: Yes normal to inspection Eyes General: appearance normal, both eyes and all related structures Neck Neck: Yes normal visual inspection Thyroid: Thyroid normal Chest Chest palpation & inspection: normal inspection of the chest and other (no puckering, dimpling, peau de orange, retraction, discharge, masses) Breast/axilla inspection: normal inspection of the breasts Breast/axilla palpation: normal palpation of the breasts Resp Effort & Inspection: normal respiratory effort GI Inspection: Yes normal to inspection Palpation (GI): Soft to palpation Rectal Exam - Female: deferred General: Yes bladder normal to palpation External Female Exam: normal external appearance and normal appearance of the urethra Speculum Exam - Vagina: normal appearance of the vagina, normal palpation and normal vaginal discharge Speculum Exam - Cervix: normal appearance of the cervix and Cervix absent (vag cuff no lesions or nodules) Bimanual exam- vagina & uterus: normal bimanual exam, normal palpation, bladder normal to palpation and uterus absent Bimanual Exam- Adnexa, other: no masses Skin General skin exam: no rashes or lesions noted Rashes: no rashes Neuro General: patient oriented x3 Cognition (Neuro): normal cognition Extrem General: Yes normal to inspection Psych Attitude: cooperative Thought process: Normal thought process present Assessment & Plan Assessment & Plan (1) Encounter for well woman exam with routine gynecological exam: Code(s): Z01.419 - Encounter for gynecological examination (general) (routine) without abnormal findings Plan Discussed: Current recommendations for pap smears per ASCCP guidelines. Breast awareness and periodic breast exams. Maintain a healthy lifestyle including a well balanced diet and routine exercise. Mammogram yearly. Colonoscopy >45, or at risk sooner. Patient verbalizes understanding and agrees to the plan of care. She was given opportunity to ask questions and all questions were answered to the best of my ability. RTO in one year for annual centrifugal spinner examination. This note is constructed using voice recognition software. While every effort has been made to ensure accuracy, quality control technician errors may have been included. Coding Level of Care Code Est Pt Prev Care 40-64y(84790) Diagnoses Encounter for well woman exam with routine gynecological exam Z01.419
[2023-04-09 08:29] VITALS: BP 92/60; BMI 27.0
== END 2023-04-09 09:10 | disposition home or self-care (01) ==
PROVIDERS: PCP Internal Medicine; Visit Provider Advanced Practice Midwife
DX: Z01.419 Encounter for gynecological examination (general) (routine) without abnormal findings (principal)
CPT/HCPCS: 99396

== ENCOUNTER → 2023-04-09 08:04 | Outpatient (BNVA) | payer OTHER, SELFPAY | PROVIDERS: PCP Internal Medicine; Visit Provider Advanced Practice Midwife ==

== ENCOUNTER 2023-05-08 08:44 | Outpatient (REF) | payer OTHER, SELFPAY ==
[2023-05-08 08:56] LABS: MANUAL DIFF FLAG NO
[2023-05-08 09:14] LABS: Basophils Percent Auto 0.5 % (0-2); Eosinophils Percent Auto 0.7 % (0-4); Hematocrit 37.3 % (37.0-47.0); Hemoglobin 11.8 g/dl (12.0-16.0); Imm Gran Abs Auto 0.07 X10*3/uL (0.00-0.03); Imm Gran Pct Auto 1.2 % (0.0-0.4); Lymphocytes Absolute Auto 1.6 X10*3/uL (1.2-4.9); Lymphocytes Percent Auto 27.6 % (20-40); Mean Corpuscular HGB Conc 31.6 g/dl (31.0-35.0); Mean Corpuscular Hemoglobin 27.4 pg (27.0-33.0); Mean Corpuscular Volume 86.7 fL (80.0-98.0); Monocytes Absolute Auto 0.4 X10*3/uL (0.1-1.2); Neutrophils Absolute Auto 3.7 x10*3/uL (2.0-8.3); Platelet Count 376 X10*3/uL (160-400); Red Cell Distribution Width 13.1 % (11.0-16.0); White Blood Count 5.8 X10*3/uL (4.8-10.8)
[2023-05-08 10:02] LABS: Rheumatoid Factor < 13.0 IU/mL (<15.0)
[2023-05-08 10:06] LABS: Anion Gap 10 (12-20); Blood Urea Nitrogen 13 mg/dL (9-16); C Reactive Protein 0.25 mg/dL (< or = 0.50); Calcium 9.4 mg/dL (8.4-10.2); Carbon Dioxide 27 mmol/L (22-29); Chloride 107 mmol/L (96-108); Estimated Glomerular Filt Rate > 60; Glucose Random 94 mg/dL (60-115); Potassium 4.3 mmol/L (3.3-5.1); Sodium 140 mmol/L (135-145)
[2023-05-08 10:14] LABS: Erythrocyte Sedimentation Rate 7 MM/HR (0-20)
[2023-05-08 10:23] LABS: Free T4 (Free Thyroxine) 0.94 ng/dL (0.71-1.85); Thyroid Stimulating Hormone 1.26 uIU/mL (0.32-4.0)
[2023-05-12 10:43] LABS: Anti Nuclear Antibody Screen POSITIVE (NEGATIVE)
== END 2023-05-08 08:45 | disposition home or self-care (01) ==
LOC: HO.LAB 08:44
PROVIDERS: PCP Internal Medicine; Visit Provider Internal Medicine
DX: J45.909 Unspecified asthma, uncomplicated (principal); M25.50 Pain in unspecified joint
CPT/HCPCS: 36415; 80048; 84439; 84443; 85025; 85652; 86038; 86039; 86140; 86431

== ENCOUNTER → 2023-05-18 15:45 | Outpatient (BNV) | payer OTHER, SELFPAY | PROVIDERS: PCP Internal Medicine; Visit Provider Radiology Diagnostic Radiology | DX: Z12.31 Encounter for screening mammogram for malignant neoplasm of breast (principal) | CPT/HCPCS: 77063; 77067 ==

== ENCOUNTER 2023-05-18 15:51 | Outpatient (REF) | payer OTHER, SELFPAY ==
--- NOTE | ~2023-05-18 | MM_ITS ---
EXAMINATION: MM SCREENING DIGITAL BREAST TOMOSYNTHESIS, BILATERAL CLINICAL INFORMATION: Screening. Asymptomatic. COMPARISON: Mammography: This study is compared with prior exams dating back to 2019. TECHNIQUE: Digital breast tomosynthesis is performed in both the craniocaudal and mediolateral oblique views along with computer-aided detection (CAD). Synthesized 2D images are generated from the tomosynthesis. FINDINGS: The breasts are heterogeneously dense, which may obscure small masses (ACR BI-RADS breast composition Category c). There are no significant masses, abnormal calcifications, or other abnormalities. In the left breast from prior benign percutaneous biopsy. MM/MM tomosynthesis screening BI IMPRESSION: No mammographic evidence of malignancy. ASSESSMENT: BI-RADS BI-RADS 2 - Benign Findings RECOMMENDATION: Routine annual mammography screening. 1 year F/U This examination should not preclude the clinical evaluation of a suspicious palpable abnormality. This patient's information was entered into a reminder system with a target due date for their next mammogram.
== END 2023-05-18 15:52 | disposition home or self-care (01) ==
LOC: HO.MAMMO 15:51
PROVIDERS: PCP Internal Medicine; Visit Provider Internal Medicine
DX: Z12.31 Encounter for screening mammogram for malignant neoplasm of breast (principal)
CPT/HCPCS: 77063; 77067

== ENCOUNTER 2024-01-14 12:32 | Outpatient (REF) | payer OTHER, SELFPAY ==
[2024-01-14 14:05] LABS: Appearance Urine Clear; Color Urine Dark Yellow; Glucose Urine UA Negative (Negative); Leukocyte Esterase Urine Negative (Negative); Nitrite Urine Negative (Negative); Specific Gravity - Urine >= 1.030 (1.005-1.025); Urine Blood Negative (Negative); Urine Ketones Trace mg/dL (Negative); Urine Protein Negative (Neg-Trace)
== END 2024-01-14 12:33 | disposition home or self-care (01) ==
LOC: HO.LAB 12:32
PROVIDERS: PCP Internal Medicine; Visit Provider Internal Medicine
DX: R30.0 Dysuria (principal)
CPT/HCPCS: 81003; 87086

== ENCOUNTER 2024-01-29 10:03 | Outpatient (RCR) | payer OTHER, SELFPAY ==
--- NOTE | 2023-12-11 15:35 | MHC.PT.EP ---
[facility] [place] Office [place] Office [place] Office [address] [phone] F: [phone] F: [phone] F: [phone] F: [phone] Physical Therapy Plan of Care Date of Evaluation: 12/10/23 Date of Surgery: n/a Diagnosis: Other specified dorsopathies, sacral and sacralcoccygeal region Pain in left hip left SI dysfunction Assessment: Pt is a pleasnt 48yo F who presents to PT with L low back and hip pain. Pt presents to PT with current impairments in pain, decreased ROM, decreased core stabilization, decreased hip/glute strength, soft tissue restrictions, decreased muscle length, and impaired posture. She is limited functionally by turning in bed, sit>stand transition, walking, descending stairs, and bending. She is an excellent candidate for skilled PT in order to address current impairments to facilitate return to PLOF. She is recommended to be seen 2x/week for 4 weeks and will be reassessed at that time Frequency and Duration: The patient will be seen 2x/week for 4 weeks Short Term Goals: Pt will be I with HEP to promote self management of symptoms Pt will have centralization of symptoms Mcc Goals: Pt will tolerate prolonged sitting > 30 min with improved posture and without increase in pain Pt will demonstrate ability to squat and poultry picker object with proper mechanics and without increase in pain Pt will demonstrate improvements in function as evidenced by statistically significant improvement in LEFI outcome measure Treatment Plan: Modalities to reduce pain, spasms and effusion. Manual therapy to restore motion and function. Therapeutic exercise to improve strength and flexibility. Neuromuscular re-education for posture and balance. Therapeutic activities to return to functional activities of daily living. Electronically signed by: Shawna Arriaga, PT, DPT Please sign and return to therapist. Thank you for your referral.
--- NOTE | 2024-03-23 10:41 | MHC.PT.DC ---
[facility] [place] Office [place] Office [place] Office [address] [phone] F: [phone] F: [phone] F: [phone] F: [phone] Physical Therapy Discharge Report Diagnosis: Other specified dorsopathies, sacral and sacralcoccygeal region Pain in left hip left SI dysfunction Date of Surgery: n/a Date of Evaluation: 12/10/23 Date of Discharge: 03/23/24 Treatments to Date: 8 Cancellations to Date: 4 No Shows to Date: Discharge Status: Improved Function Independent with HEP Patient Elected to Stop Discharge Summary: Pt was seen for skilled PT from 12/10/23-01/29/24. Her last attended appointment was 01/29/24. She cancelled her last 3 appointments and requested to self D/C from PT reporting she is feeling okay for now. She is being D/C from skilled PT per her request. Pt current level of function unknown at this time Electronically signed by: Shawna Arriaga, PT, DPT Please sign and return to therapist. Thank you for your referral.
== END 2024-03-23 10:41 | disposition home or self-care (01) ==
LOC: HO.PT 10:03
PROVIDERS: PCP Internal Medicine; Visit Provider Internal Medicine
DX: M53.88 Other specified dorsopathies, sacral and sacrococcygeal region (principal); M25.552 Pain in left hip
CPT/HCPCS: 97110; 97140; 97161; 97530

== ENCOUNTER 2024-05-23 15:53 | Outpatient (REF) | payer OTHER, SELFPAY | END 2024-05-23 15:54 | disposition home or self-care (01) | LOC: HO.MAMMO 15:53 | PROVIDERS: PCP Internal Medicine; Visit Provider Internal Medicine | DX: Z12.31 Encounter for screening mammogram for malignant neoplasm of breast (principal) | CPT/HCPCS: 77063; 77067 ==

== ENCOUNTER → 2024-05-23 16:00 | Outpatient (BNV) | payer OTHER, SELFPAY | PROVIDERS: PCP Internal Medicine; Visit Provider Internal Medicine | DX: Z12.31 Encounter for screening mammogram for malignant neoplasm of breast (principal) | CPT/HCPCS: 77063; 77067 ==

== ENCOUNTER 2024-06-07 10:03 | Emergency (ER) | payer OTHER, SELFPAY ==
--- NOTE | ~2024-06-07 | CT_ITS ---
EXAMINATION: CT ABDOMEN AND PELVIS WITH CONTRAST CLINICAL INFORMATION: Abdominal pain. COMPARISON: May 24, 2010. TECHNIQUE: Multidetector volumetric images were obtained from the superior aspect of the liver through the pubic symphysis following administration 85 mL of Omnipaque 350 intravenous contrast. Sagittal and coronal reformatted images were obtained on the technologist's workstation. Oral contrast: No This CT examination was performed using dose optimization techniques as appropriate, variously including the following: *Automated exposure control *Adjustment of mA and/or kV according to patient size (this includes techniques or standardized protocols for targeted exams where dose is matched to indication/reason for exam; i.e. extremities or head) *Use of iterative reconstruction technique. DLP: 457 mGy centimeter. FINDINGS: LUNG BASES: No acute airspace disease. LIVER, GALLBLADDER, AND BILIARY TREE: Liver measures 17 cm. No focal mass. Portal veins, hepatic veins and intrahepatic portion of the IVC are patent. No intrahepatic biliary ductal dilatation. Gallbladder is contracted. No pericholecystic fluid collection or gallbladder wall thickening. Common bile duct measures 3 mm. PANCREAS: No focal lesion. No peripancreatic fluid collection. No main pancreatic ductal dilatation. SPLEEN: 10 cm. No focal lesion. Small accessory spleen in the hilum. ADRENAL GLANDS: No nodular lesion. KIDNEYS AND URETERS: No hydronephrosis in either kidney. Cystic lesions, left kidney. No enhancing mass. Probable nonobstructing nephrolithiasis measuring less than 3 mm in the pelvicalyceal system. There is anterior lateral rotation of the left renal hilum. There is a questionable duplicated collecting system, left kidney. BLADDER: Fluid-filled nearly collapsed. GASTROINTESTINAL TRACT: Diffuse concentric wall thickening involving mostly the large intestine vein and to a lesser extent the terminal ileum and distal ileal loops. No intestinal obstruction pattern. No pneumatosis intestinalis. No pneumoperitoneum. Appendix is normal. No peripheral enhancing fluid collection, peritoneal cavity. No ascites. ABDOMINAL WALL: Diastases abdominal rectus muscles in the periumbilical region. LYMPH NODES: Mild prominent lymph nodes in the mesentery. VASCULAR: No aneurysm or dissection, abdominal aorta. There are 2 arteries orientating from the proximal left common iliac artery to the inferior pole of the left kidney. PELVIC VISCERA: I do not see the uterus OSSEOUS STRUCTURES: Mild multilevel thoracic spondylosis. No acute fracture or listhesis. Facet joint hypertrophy at L5-S1 and to a lesser extent L4-5. CT/CT abdomen pelvis w IV con IMPRESSION: Concerning acute inflammatory bowel disease such as Crohn's disease versus ulcerative colitis. 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 Nonobstructing nephrolithiasis. Fleischner guidelines were followed. Electronically signed by: Franky Wang MD 06/07/2024 12:21 PM EDT
[2024-06-07 10:05] VITALS: BP 121/72; PULSE 104; RESP 16; TEMP 36.8; O2SAT 98; BMI 27.0
--- NOTE | 2024-06-07 10:33 | ED_ITS ---
HPI - General Adult General Chief complaint: Nausea/Vomiting/Diarrhea Stated complaint: Vomiting 3 days Time Seen by Provider: 06/07/24 10:33 Source: patient Mode of arrival: ambulatory Limitations: no limitations History of Present Illness ED Provider: Lisset Segundo PA-C HPI narrative: Patient is a 49 year old assigned female at with a history of asthma presenting to the emergency department today with diarrhea, nausea, vomiting, and abdominal pain. Patient states that over the last 3 days she has had nausea, vomiting, diarrhea, and abdominal pain. Patient denies any dizziness, lightheadedness, fever, chills, blurry vision, double vision, loss of vision, chest pain, difficulty breathing, shortness of breath, back pain, night sweats, pain with urination, increased urinary frequency, increased urinary urgency, blood in her urine or stool, syncope or a near syncopal episode, recent trauma or falls, bowel incontinence, bladder incontinence, or any other complaints at this time. Onset (ago): day(s) (3) Relieving factors: none Exacerbating factors: none Associated symptoms: nausea/vomiting Treatments prior to arrival: none Related Data Home Medications ?Medication ?Instructions ?Recorded ?Confirmed albuterol sulfate 90 mcg/actuation 2 puff inhalation QID PRN 01/13/22 aerosol inhaler gabapentin 300 mg capsule 300 mg PO TID PRN pain 01/13/22 ipratropium 0.5 mg-albuterol 3 mg ml inhalation BID PRN 01/13/22 (2.5 mg base)/3 mL nebulization soln nebulizers 11/11/22 buspirone 5 mg tablet 5 mg PO BID PRN 04/09/23 fluoxetine 10 mg tablet 10 mg PO DAILY 04/09/23 Previous Rx's ?Medication ?Instructions ?Recorded budesonide-formoterol HFA 160 2 puff inhalation BID 30 days 11/11/22 mcg-4.5 mcg/actuation aerosol #10.2 grams inhaler (Symbicort) inhalational spacing device #1 ea 11/11/22 (Aerochamber Plus Flow-Vu) dicyclomine 10 mg capsule 10 mg PO BID #14 caps 06/07/24 ondansetron 4 mg disintegrating 4 mg PO Q8H 3 days #9 tabs 06/07/24 tablet Allergies Allergy/AdvReac Type Severity Reaction Status Date / Time ciprofloxacin [From CIPRO] Allergy Severe SWELLING Verified 06/07/24 10:07 AND NUMBNESS Review of Systems 2 Constitutional: Constitutional: Reports no additional constitutional complaints, Denies chills, Denies fever(s) and Denies night sweats Eyes: Eyes: Reports no additional eye complaints, Denies blurry vision, Denies change in vision, Denies diplopia, Denies eye discharge, Denies loss of vision and Denies eye pain ENT: Denies dizziness Cardiovascular: Cardiovascular: Reports no additional cardiovascular complaints, Denies chest pain, Denies lightheadedness, Denies Loss of Consciousness and Denies dyspnea Respiratory: Respiratory: Reports no additional respiratory complaints and Denies dyspnea Gastrointestinal: Gastrointestinal: Reports no additional gastrointestinal complaints, Reports abdominal pain, Denies melena, Denies hematochezia, Reports change in bowel habits, Reports change in stool character, Reports diarrhea, Reports nausea and Reports vomiting Genitourinary: Genitourinary: Denies hematuria, Denies urinary frequency, Denies dysuria, Denies urinary incontinence, Denies urinary hesitancy and Denies urinary urgency Musculoskeletal: Musculoskeletal: Reports no additional musculoskeletal complaints, Denies numbness and Denies tingling Neurologic: Denies dizziness, Denies loss of vision, Denies numbness and Denies tingling Psychiatric: Psychiatric: Reports no additional psychiatric complaints Endocrine: Endocrine: Reports no additional endocrine complaints Hematologic/Lymphatic: Hematologic/Lymphatic: Reports no additional hematologic/lymphatic complaints Allergic/Immunologic: Allergic/Immunologic: Reports no additional allergic/immunologic complaints PMFSH Past Medical History Attestation statement: The following information was validated with the patient. Source: old records reviewed and nursing notes reviewed Medical History Chronic allergic rhinitis Asthma Cervical dysplasia Vaginal lump Complex ovarian cyst Kidney stone Surgical History H/O LEEP H/O: hysterectomy Family History Family History Mother Asthma Maternal Aunt Breast cancer Maternal Grandmother Breast cancer Social History Social History Household Members: Spouse and Children Housing: House Alcohol intake: current Alcohol intake frequency: holidays/special occasions only Patient Tobacco Use Status: Never used Tobacco Advance Directives: No Advance Directives Information Provided: Yes Do you have a plan to hurt others: No Plan service: No Current occupational status: employed 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 Sexual orientation: Straight/Heterosexual Gender identity: Female Physical Exam ED Vital Signs: Vital Signs - 24 hr 06/07/24 10:05 06/07/24 12:34 06/07/24 13:12 Temperature 98.3 F 99.1 F 99.1 F Pulse Rate 104 H 91 91 Respiratory Rate 16 16 16 Blood Pressure 121/72 109/76 109/76 Pulse Oximetry 98 98 98 Oxygen Delivery Method Room Air Room Air Room Air BMI result Body Mass Index 27.0 Const General: cooperative, no acute distress, alert and awake Nutritional Appearance: well nourished Orientation/consciousness: patient oriented x3 Limitations: no limitations HENMT Head: Yes normal to inspection and Yes atraumatic Ears: hearing grossly normal bilaterally and external ears normal General nose exam: Normal external nose present, no nasal discharge noted and no epistaxis Face and sinus: Yes normal facial exam, No abrasion and No laceration Mouth: Normal oral and palatal mucosa present, no drooling and no muffled voice Eyes General: appearance normal, both eyes and all related structures Periorbital: periorbital findings normal Eyelids: Yes eyelids normal Conjunctivae: conjunctivae normal Pupils: Equal, round and reactive pupils present EOM: EOMs intact bilaterally Neck Neck: Yes normal visual inspection, Yes full ROM and Yes no lymphadenopathy Chest Chest palpation & inspection: normal inspection of the chest Resp Effort & Inspection: normal respiratory effort and able to speak in complete sentences GI Inspection: Yes normal to inspection Neuro General: patient oriented x3, moves all extremities and CN's II-XI intact bilaterally Cranial nerves: Yes Equal, round and reactive pupils present Cognition (Neuro): normal cognition Extrem General: Yes normal to inspection, Yes full ROM and Yes capillary refill normal Psych Appearance: grossly normal Mental Status: mental status grossly normal Affect: normal affect Attitude: cooperative Thought process: Normal thought process present Thought content: Normal thought content present Insight: Good insight present (Psych) Medications Administered Discontinued Medications Generic Name Dose Route Start Last Admin Trade Name Freq PRN Reason Stop Dose Admin Dicyclomine HCl 10 mg 06/07/24 12:26 06/07/24 12:37 Dicyclomine Hcl 10 Mg Capsule PO 06/07/24 12:27 10 mg ONCE ONE Administration Sodium Chloride 1,000 mls @ 999 mls/hr 06/07/24 10:45 06/07/24 12:11 Ns IV 06/07/24 11:45 Infused .Q1H1M GALDINO Infusion Iohexol 100 ml 06/07/24 11:44 06/07/24 11:45 Iohexol 350 Mg/Ml 100 Ml Infus..Btl IV 06/07/24 11:45 85 ml ONCE ONE Administration Ondansetron HCl 4 mg 06/07/24 10:34 06/07/24 10:54 Ondansetron Hcl 4 Mg/2 Ml Vial IVPUSH 06/07/24 10:35 4 mg ONCE ONE Administration Medical Decision Making Medical Decision Making [facility] Narrative: Patient is a 49 year old assigned female at with a history of asthma presenting to the emergency department today with diarrhea, nausea, vomiting, and abdominal pain. Patient's physical exam was unremarkable. Patient's blood work was unremarkable. 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 Patient's stool came back positive for salmonella. I explained my physical exam findings as well as all test results to the patient. I answered all questions asked by the patient. Patient received IV fluids and Zofran which, upon re-evaluation, she stated it helped her symptoms significantly. I stressed the importance of the patient taking her medication as directed (either prescribed or as the over the counter packaging recommends). I stressed the importance of the patient following up with her primary care provider and a GI specialist. I stressed the importance of the patient returning to the emergency department immediately if her symptoms were to worsen or if she were to develop any dizziness, shortness of breath, difficulty breathing, chest pain, blurry vision, loss of vision, nausea, vomiting, abdominal pain, fever, chills, back pain, or any other complaints. Patient verbalized agreement and understanding with this treatment plan and discharge. Differential Diagnosis Differential Diagnoses: The differential diagnosis associated with the presentation includes Salmonella Norovirus Abdominal pain Nausea Diarrhea Admission/Observation Consideration of admission/observation: Escalation of care including admission/observation considered Patient would have been admitted to the hospital had her work up had any findings where hospital admission was appropriate and her clinical presentation warranted hospital admission. Lab Data MDM Lab Attestation statement: I reviewed the patient's lab results. My interpretation of these results are in the [facility] Rationale portion of this note. 06/07/24 10:36 06/07/24 10:36 Labs: Lab Results 06/07/24 06/07/24 Range/Units 10:36 10:42 WBC 8.6 (4.8-10.8) X10*3/uL RBC 4.50 (4.20-5.50) X10*6/uL Hgb 12.2 (12.0-16.0) g/dl Hct 38.3 (37.0-47.0) % MCV 85.1 (80.0-98.0) fL MCH 27.1 (27.0-33.0) pg MCHC 31.9 (31.0-35.0) g/dl RDW 13.6 (11.0-16.0) % Plt Count 291 (160-400) X10*3/uL MPV 10.1 (9.4-12.3) fL Immature Gran % (Auto) 0.7 H (0.0-0.4) % Neut % (Auto) 87.4 H (45-73) % Lymph % (Auto) 6.8 L (20-40) % [place] % (Auto) 3.3 (2-11) % Eos % (Auto) 1.2 (0-4) % Baso % (Auto) 0.6 (0-2) % Lymph # (Auto) 0.6 L (1.2-4.9) X10*3/uL [place] # (Auto) 0.3 (0.1-1.2) X10*3/uL Eos # (Auto) 0.1 (0.0-0.4) X10*3/uL Baso # (Auto) 0.1 (0.0-0.2) X10*3/uL Abs Immat Gran (auto) 0.06 H (0.00-0.03) X10*3/uL Absolute Neuts (auto) 7.5 (2.0-8.3) x10*3/uL Absolute Nucleated RBC 0.000 (0.0-0.012) X10*3/uL Nucleated RBC % (auto) 0.0 (0.0-0.2) /100WBC Sodium 138 (135-145) mmol/L Potassium 3.4 D (3.3-5.1) mmol/L Chloride 106 (96-108) mmol/L Carbon Dioxide 24 (22-29) mmol/L Anion Gap 11 L (12-20) BUN 10 (9-16) mg/dL Creatinine 0.77 (0.5-1.4) mg/dL Estim Creat Clear Calc 77.9 Estimated GFR > 60 Random Glucose 147 H (60-115) mg/dL Calcium 9.4 (8.4-10.2) mg/dL Magnesium 1.9 (1.6-2.6) mg/dL Total Bilirubin 0.4 (0.0-1.0) mg/dL AST 19 (5-31) U/L ALT 14 (0-31) U/L Alkaline Phosphatase 58 (39-117) U/L Total Protein 7.1 (6.5-8.0) g/dL Albumin 4.3 (3.5-5.0) g/dL Stl C. cayetanensis PCR Not Detected (Not Detect.) Stool Rotavirus A PCR Not Detected (Not Detect.) Stl Adenov F 40/41 PCR Not Detected (Not Detect.) Stool Astrovirus (PCR) Not Detected (Not Detect.) Stool Campylobacter PCR Not Detected (Not Detect.) Stool Cryptosporidium PCR Not Detected (Not Detect.) Stl Sh Tox Pr E STEC PCR Not Detected (Not Detect.) Stool E coli O157 PCR Not applicable (Not Detect.) Stl Enterotoxigenic E PCR Not Detected (Not Detect.) Stool EPEC (PCR) Not Detected (Not Detect.) Stool EAEC (PCR) Not Detected (Not Detect.) Stl E. histolytica PCR Not Detected (Not Detect.) Stool Giardia Lamblia PCR Not Detected (Not Detect.) Stl P. shigelloides PCR Not Detected (Not Detect.) Stool Salmonella PCR Detected A (Not Detect.) Stool Sapovirus (PCR) Not Detected (Not Detect.) Stl Shigella/EIEC PCR Not Detected (Not Detect.) St Y.enterocolitica PCR Not Detected (Not Detect.) Stool Vibrio (PCR) Not Detected (Not Detect.) Stl Vibrio cholerae PCR Not Detected (Not Detect.) Stl Norovirus GI/GII PCR Not Detected (Not Detect.) Influenza Type A (PCR) NEGATIVE (Negative) Influenza Type B (PCR) NEGATIVE (Negative) RSV RNA Qual (PCR) NEGATIVE (Negative) SARS-CoV-2 RNA (RT-PCR) NEGATIVE (Negative) Independent Interpretation I performed an independent interpretation of an: CT Scan Interpretation: My interpretation is in agreement with the radiologist's impression of this imaging study. L Report Number: [id number]: Total DLP = 457.00 mGy-cm EXAMINATION: CT ABDOMEN AND PELVIS WITH CONTRAST CLINICAL INFORMATION: Abdominal pain. COMPARISON: May 24, 2010. TECHNIQUE: Multidetector volumetric images were obtained from the superior aspect of the liver through the pubic symphysis following administration 85 mL of Omnipaque 350 intravenous contrast. Sagittal and coronal reformatted images were obtained on the technologist's workstation. Oral contrast: No This CT examination was performed using dose optimization techniques as appropriate, variously including the following: *Automated exposure control *Adjustment of mA and/or kV according to patient size (this includes techniques or standardized protocols for targeted exams where dose is matched to indication/reason for exam; i.e. extremities or head) *Use of iterative reconstruction technique. DLP: 457 mGy centimeter. FINDINGS: LUNG BASES: No acute airspace disease. LIVER, GALLBLADDER, AND BILIARY TREE: Liver measures 17 cm. No focal mass. Portal veins, hepatic veins and intrahepatic portion of the IVC are patent. No intrahepatic biliary ductal dilatation. Gallbladder is contracted. No pericholecystic fluid collection or gallbladder wall thickening. Common bile duct measures 3 mm. PANCREAS: No focal lesion. No peripancreatic fluid collection. No main pancreatic ductal dilatation. SPLEEN: 10 cm. No focal lesion. Small accessory spleen in the hilum. ADRENAL GLANDS: No nodular lesion. KIDNEYS AND URETERS: No hydronephrosis in either kidney. Cystic lesions, left kidney. No enhancing mass. Probable nonobstructing nephrolithiasis measuring less than 3 mm in the pelvicalyceal system. There is anterior lateral rotation of the left renal hilum. There is a questionable duplicated collecting system, left kidney. BLADDER: Fluid-filled nearly collapsed. GASTROINTESTINAL TRACT: Diffuse concentric wall thickening involving mostly the large intestine vein and to a lesser extent the terminal ileum and distal ileal loops. No intestinal obstruction pattern. No pneumatosis intestinalis. No pneumoperitoneum. Appendix is normal. No peripheral enhancing fluid collection, peritoneal cavity. No ascites. ABDOMINAL WALL: Diastases abdominal rectus muscles in the periumbilical region. LYMPH NODES: Mild prominent lymph nodes in the mesentery. VASCULAR: No aneurysm or dissection, abdominal aorta. There are 2 arteries orientating from the proximal left common iliac artery to the inferior pole of the left kidney. PELVIC VISCERA: I do not see the uterus OSSEOUS STRUCTURES: Mild multilevel thoracic spondylosis. No acute fracture or listhesis. Facet joint hypertrophy at L5-S1 and to a lesser extent L4-5. CT/CT abdomen pelvis w IV con IMPRESSION: Concerning acute inflammatory bowel disease such as Crohn's disease versus ulcerative colitis. 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 Nonobstructing nephrolithiasis. Fleischner guidelines were followed. Electronically signed by: Franky Wang MD 06/07/2024 12:21 PM EDT RP Dictated By: Franky Davison MD Signed By: Electronically signed by Franky Campbell MD 06/07/24 1221 Radiology Impression Discussion of test interpretation with radiology: I have reviewed the radiologist's reading. Discharge Plan Discharge Clinical Impression: Abdominal pain, Diarrhea, Salmonella Patient Disposition: Home, Self-Care Instructions: Acute Diarrhea (ED), Abdominal Pain (ED), Salmonella Infection (ED) Additional Instructions: Follow up with your primary care provider and a GI specialist. Return to the emergency department immediately if your symptoms worsen or if you develop any numbness, tingling, dizziness, shortness of breath, difficulty breathing, chest pain, blurry vision, loss of vision, nausea, vomiting, abdominal pain, fever, chills, back pain, or any other complaints. Please see the information below about our Patient Portal. If you are not yet enrolled in the [facility] Patient Portal, you will receive an enrollment email invitation following your visit to any [facility] [place] setting. You may also self-enroll in the Patient Portal by visiting our website: [email or web address] The following information is required to access the Patient Portal: - Your [facility] Medical Record Number - Your personal home email address (must match what is in your electronic medical record, Registration staff can assist with this) - Name - Date of Capabilities of the Patient Portal: - Message some providers - View upcoming appointments - Access your health summary, medical history, and visit history - View current conditions and allergies - View procedure and lab results - View your medications, including guidelines, side effects, and precautions - Complete pre-appointment questionnaires requested by your provider - Ready summary reports of your office visits and procedures To access the Patient Portal Mobile Brett, follow these directions: - Search FP Complete in the Brett Store or Win[employer] Store - Download the Brett - Search for [facility] - Enter your login/password Prescriptions: New dicyclomine 10 mg capsule 10 mg PO BID Qty: 14 0RF ondansetron 4 mg tablet,disintegrating 4 mg PO Q8H 3 Days Qty: 9 0RF No Action gabapentin 300 mg capsule 300 mg PO TID PRN (Reason: pain) ipratropium-albuterol 0.5 mg-3 mg(2.5 mg base)/3 mL solution for nebulization inhalation BID PRN albuterol sulfate 90 mcg/actuation HFA aerosol inhaler 2 puff inhalation QID PRN fluoxetine 10 mg tablet 10 mg PO DAILY buspirone 5 mg tablet 5 mg PO BID PRN (DME) nebulizers Mis See Rx Instructions .ROUTE Rx Instructions: As directed budesonide-formoterol [Symbicort] 160-4.5 mcg/actuation HFA aerosol inhaler 2 puff inhalation BID 30 Days Qty: 10.2 11RF (DME) Aerochamber Plus Flow-Vu Spacer See Rx Instructions miscellaneous .MEDSUPPLY Qty: 1 0RF Rx Instructions: As directed Referrals: [facility] [Provider Group] (Call to establish and follow up with a GI specialist. ) Fito Damon MD [Primary Care Provider] - Interventions: ED Discharge Assessment Last Done: 06/07/24 13:12 Discharge Date/Time: 06/07/24 13:13 Print Language: Malian
[2024-06-07 10:48] LABS: MANUAL DIFF FLAG NO
[2024-06-07] MEDS: 0.9 % Sodium Chloride 1,000 ML 999 ML IV (10:53)
[2024-06-07] MEDS: ondansetron HCL 4 MG/2 ML VIAL IVPUSH (10:54)
[2024-06-07 10:55] LABS: Basophils Absolute Auto 0.1 X10*3/uL (0.0-0.2); Basophils Percent Auto 0.6 % (0-2); Eosinophils Absolute Auto 0.1 X10*3/uL (0.0-0.4); Eosinophils Percent Auto 1.2 % (0-4); Hematocrit 38.3 % (37.0-47.0); Hemoglobin 12.2 g/dl (12.0-16.0); Imm Gran Abs Auto 0.06 X10*3/uL (0.00-0.03); Imm Gran Pct Auto 0.7 % (0.0-0.4); Lymphocytes Absolute Auto 0.6 X10*3/uL (1.2-4.9); Lymphocytes Percent Auto 6.8 % (20-40); Mean Corpuscular HGB Conc 31.9 g/dl (31.0-35.0); Mean Corpuscular Hemoglobin 27.1 pg (27.0-33.0); Mean Corpuscular Volume 85.1 fL (80.0-98.0); Mean Platelet Volume 10.1 fL (9.4-12.3); Monocytes Absolute Auto 0.3 X10*3/uL (0.1-1.2); Monocytes Percent Auto 3.3 % (2-11); Neutrophils Absolute Auto 7.5 x10*3/uL (2.0-8.3); Neutrophils Percent Auto 87.4 % (45-73); Platelet Count 291 X10*3/uL (160-400); Red Cell Distribution Width 13.6 % (11.0-16.0); White Blood Count 8.6 X10*3/uL (4.8-10.8)
[2024-06-07 11:10] LABS: Alanine Aminotransferase 14 U/L (0-31); Albumin Level 4.3 g/dL (3.5-5.0); Alkaline Phosphatase 58 U/L (39-117); Anion Gap 11 (12-20); Aspartate Amino Transferase 19 U/L (5-31); Bilirubin Total 0.4 mg/dL (0.0-1.0); Blood Urea Nitrogen 10 mg/dL (9-16); Calcium 9.4 mg/dL (8.4-10.2); Carbon Dioxide 24 mmol/L (22-29); Chloride 106 mmol/L (96-108); Creatinine Clr Calc Pharmacy 77.9; Estimated Glomerular Filt Rate > 60; Glucose Random 147 mg/dL (60-115); Potassium 3.4 mmol/L (3.3-5.1); Sodium 138 mmol/L (135-145); Total Protein 7.1 g/dL (6.5-8.0)
[2024-06-07 11:27] LABS: Magnesium 1.9 mg/dL (1.6-2.6)
[2024-06-07 11:33] LABS: Influenza A PCR NEGATIVE (Negative); Influenza B PCR NEGATIVE (Negative); Resp Syncy Virus RNA Qual PCR NEGATIVE (Negative); SARS COV2 PCR INHOUSE NEGATIVE (Negative)
[2024-06-07] MEDS: iohexoL 350 MG/ML 100 ML INFUS..BTL IV (11:45)
[2024-06-07 12:34] VITALS: BP 109/76; PULSE 91; RESP 16; TEMP 37.3; O2SAT 98
[2024-06-07] MEDS: Dicyclomine HCl 10 MG CAPSULE PO (12:37)
[2024-06-07 13:12] VITALS: BP 109/76; PULSE 91; RESP 16; TEMP 37.3; O2SAT 98
[2024-06-07 13:39] LABS: Adenovirus F 40/41 Not Detected (Not Detect.); Astrovirus Not Detected (Not Detect.); Campylobacter Not Detected (Not Detect.); Cryptosporidium Not Detected (Not Detect.); Cyclospora cayetanensis Not Detected (Not Detect.); E. coli EAEC Not Detected (Not Detect.); E. coli EPEC Not Detected (Not Detect.); E. coli ETEC Not Detected (Not Detect.); E. coli STEC Not Detected (Not Detect.); Entamoeba histolytica Not Detected (Not Detect.); Giardia lamblia Not Detected (Not Detect.); Norovirus GI/GII Not Detected (Not Detect.); Plesiomonas shigelloides Not Detected (Not Detect.); Rotavirus A Not Detected (Not Detect.); Sapovirus Not Detected (Not Detect.); Shigella sp./EIEC Not Detected (Not Detect.); Vibrio Not Detected (Not Detect.); Vibrio Cholerae Not Detected (Not Detect.); Yersinia enterocolitica Not Detected (Not Detect.)
[2024-06-07 14:10] LABS: Salmonella Detected (Not Detect.)
== END 2024-06-07 13:13 | disposition home or self-care (01) ==
PROVIDERS: Physician Assistant Medical; Emergency Provider Emergency Medicine; PCP Internal Medicine
DX: A02.9 Salmonella infection, unspecified (principal); R10.9 Unspecified abdominal pain; R11.2 Nausea with vomiting, unspecified; R19.7 Diarrhea, unspecified; Z03.818 Encounter for observation for suspected exposure to other biological agents ruled out
CPT/HCPCS: 0241U; 36415; 74177; 80053; 83735; 85025; 87507; 96361; 96374; 99283; 99284; J2405; Q9967

== ENCOUNTER → 2024-06-07 10:41 | Outpatient (BNV) | payer OTHER, SELFPAY | PROVIDERS: PCP Internal Medicine; Visit Provider Radiology Diagnostic Radiology | DX: N20.0 Calculus of kidney (principal) | CPT/HCPCS: 74177 ==

== ENCOUNTER 2024-06-10 09:00 | Outpatient (AMB) | payer OTHER, SELFPAY ==
[2024-06-10 09:09] VITALS: BP 116/70; PULSE 78; TEMP 36.4; O2SAT 98; BMI 27.4
--- NOTE | 2024-06-10 09:09 | MHC.PC.OV ---
Vital Signs 06/10/24 09:09 Height 5 ft 1 in Weight 65.771 kg BMI 27.4 BP 116/70 Blood Pressure Location Lt brachial Position Sitting Pulse 78 Pulse Source Pulse Oximeter Temp 97.6 F Temp Source Axillary Pulse Oximetry (%) 98 Oxygen Delivery Method Room Air Intake Visit Reasons: Salmonella Optometric Coordinator Required: No Accompanied by: Self / Same As Patient Allergies ciprofloxacin [From CIPRO] Allergy (Severe, Verified 06/10/24 09:10) SWELLING AND NUMBNESS Medication List - Last Reconciled 06/10/24 by WILL Braswell albuterol sulfate 90 mcg/actuation 2 puffs inhalation QID PRN budesonide-formoterol 160-4.5 mcg/actuation (Symbicort) 2 puffs inhalation BID 30 days buspirone 5 mg PO BID PRN ibuprofen 800 mg PO Q8H PRN inhalational spacing device (Aerochamber Plus Flow-Vu) As directed ipratropium-albuterol 0.5 mg-3 mg(2.5 mg base)/3 mL mL inhalation BID PRN loperamide 2 mg PO Q6H PRN nebulizers As directed ondansetron 4 mg PO Q8H 3 days pregabalin (Lyrica) 200 mg PO TID Tobacco use date assessed: 06/10/24 Dental Screening Dental Screen Date: 06/10/24 Did you have a dental visit in the last 12 months?: Yes Did you have a dental problem in the last 6 months where you did not have access to dental care?: No HPI HPI Comments History of Present Illness Details #episodes per day severity ?antidiarrheals fevers blood? n/v diarrhea thursday night, better thursday. evening. 30 minutes. black watery, no brb abd pain diffuse abd pain. 10/10 at its worst. currently3/4 . eating and dinking triggers. fever and thursday tylenol 101.3 chills/sweats delyinated unsepecified oconnel. dysuria/urgency with limited output thursday Salmonella diarrhea 4-10s to resolve. Abx do nothing to help with fever, diarrhea, duration crohns severity fh? personal hx of this or other no better stopped eating or drinking last night. cramping urgency pain heel History of Present Illness The patient is a 49-year-old female presenting To the office for ED follow-up. ER provider note, labs, cat scan of abdomen / pelvis reviewed as well as GI panel. The patient presented to the [facility] on 06/07 complaining of severe abdominal pain, fevers Up to 101.3, diarrhea. There was no leukocytosis or fevers in the ED. Electrolyte levels were stable. she did ultimately test positive for Salmonella. CT abdomen / pelvis showed possibility of acute Crohn's versus ulcerative colitis flare. The patient denies any known history of inflammatory bowel disease. No family history of autoimmune conditions. She does personally have a history of a demyelinating condition, unknown type, unknown if this is related to an autoimmune condition. She states that she is still having many episodes of black watery diarrhea daily. there is associated urgency with minimal output at times. This is triggered by food. She has not eaten or drank anything since last night so that she would not be symptomatic this morning. There is no nausea or vomiting. No persistent fevers. She states that when she eats she does have 10/10 pain but currently is a 3-4/10 pain. It is constant but waxes and wanes in severity without any radiation. The diarrheal symptoms began on Thursday night, initially subsiding but then increasing in severity later on Thursday. No recurrence this morning. She is also reporting dysuria and decreased urine output which is new in the last several days. She is also reporting a pain in the heel worsened by ambulating and dorsiflexion that radiates up her leg. No joint pain. No improvement with self-care measures such as icing or bandaging She is also here to discuss chronic conditions. Medical history notes ongoing management of anxiety, asthma?with excellent current control. Follows with dr. alatorre?and anxiety, alongside an autoimmune condition diagnosed as demyelinating disease for which she takes gabapentin and follows with Dr. Lopez and Neurology, with appropriate medication adherence. Review of Systems - Gastrointestinal: Reports frequent watery, black diarrhea with urgency. - Genitourinary: Reports decreased sensation of bladder emptying. - Musculoskeletal: Reports shooting leg pain starting from heel, suspected plantar fasciitis. - Constitutional: Reports fever earlier in the week, currently resolved. - Neurological: Reports history of demyelinating disease. - : Reports dysuria, decreased urine output - Respiratory: Denies current respiratory symptoms; past asthma symptoms controlled. - Psychiatric: Reports anxiety; no current depression or suicidal ideation is expressed. Vital Signs reviewed Health Maintenance - Scheduled colonoscopy for definitive diagnosis of gastrointestinal issues. - Continue Lyrica for demyelinating disease management. - Continue anxiety management as necessary with BuSpar. - Follow-up planned in six months for physical exam. Physical Exam Constitutional: Awake and alert, no apparent distress Heart: RRR, S1S2, no murmurs, no edema Lungs: CTA bilaterally, no wheezing Extremities: tenderness along the plantar fascia, worsened by dorsiflexion, possible plantar fasciitis Skin: Warm and dry Neuro: Alert and oriented x 3 Assessment and Plan 1. Diarrhea, possibly due to Salmonella infection Management will include symptomatic relief with prescribed loperamide and fluid replacement. A CBC was ordered to check for anemia given black watery diarrhea, however this is likely related to Pepto-Bismol use. We will also evaluate BNP to check for any renal function or electrolyte abnormalities given significant diarrhea Salmonella typically resolves without antibiotics, and often antibiotics provide no significant difference in symptom management or duration of symptoms. Advised to contact the office if symptoms have not improved after 10 days or sooner if she develops any severe abdominal pain or fevers. CT scan reviewed showing possible acute Crohn's or ulcerative colitis. Given positive test for Salmonella, more likely an inflammatory ileocolitis, however she is recommended to follow-up with gastroenterology for colonoscopy as scheduled. Would not recommend steroids at this time. 2. Leg pain, suspect plantar fasciitis Recommend conservative management involving ibuprofen and supportive footwear. Follow non-pharmacological interventions such as cold therapy and stretching exercises. Patient information provided 3. Demyelinating disease Stable. Continue current medication regimen, with neurologist engagement as necessary. 4. Asthma Controlling symptoms effectively; review inhaler use as needed. 5. Anxiety As needed use of BuSpar, with monitoring for symptom changes. 6. Dysuria UA/UC ordered. Antibiotics to be ordered if indicated [facility] Medical History (Updated 06/10/24 @ 10:35 by WILL Braswell) Demyelinating disease Chronic allergic rhinitis Asthma Cervical dysplasia Vaginal lump Complex ovarian cyst Kidney stone Surgical History H/O LEEP H/O: hysterectomy Family History (Updated 06/10/24 @ 09:18 by Ally Alcantar MA) Mother Asthma Maternal Aunt Breast cancer Maternal Grandmother Breast cancer Social History Household Members: Spouse and Children Housing: House Alcohol intake: current Alcohol intake frequency: holidays/special occasions only Patient Tobacco Use Status: Never used Tobacco e-Cigarette/Vaping Use: Never Used service: No Current occupational status: employed 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 1. Little interest or pleasure in doing things: not at all 2. Feeling down, depressed, or hopeless: several days 3. Trouble falling or staying asleep, or sleeping too much: several days 4. Feeling tired or having little energy: several days 5. Poor appetite or overeating: several days 6. Feeling bad about yourself - or that you are a failure or have let yourself or your family down: not at all 7. Trouble concentrating on things, such as reading the newspaper or watching television: not at all 8. Moving or speaking so slowly that other people could have noticed. Or the opposite - being so fidgety or restless that you have been moving around a lot more than usual: not at all 9. Thoughts that you would be better off or of hurting yourself in some way: not at all Total score: 4 Source: Developed by Drs. Chuy Murillo, Nolvia Zamora, Gurmeet Ramos and colleagues, with an educational alfonso from [employer]. Thrive Questionnaire Date Thrive assessed: 06/10/24 I am a: Patient Within the past 12 months, did the food you bought not last and you didn't have the money to get more?: Never true Within the past 12 months, did you worry whether your food would run out before you got money to buy more?: Never true Do you have trouble paying for medicines?: No Do you have trouble getting transportation to medical appointments?: No Do you have trouble paying your heating and electricity bill?: No Do you have trouble taking care of your child, family member or friend?: No Do you have trouble with day-to-day activities such as bathing, preparing meals, shopping, managing finances, etc.?: No Are you currently unemployed and looking for a job?: No Are you interested in more education?: No THRIVE Score: 0 AUDIT C Alcohol Use Questionnaire (AUDIT-C) 1. How often do you have a drink containing alcohol?: Monthly or less 2. How many drinks containing alcohol do you have on a typical day when you are drinking?: 1 or 2 3. How often do you have six or more drinks on one occasion?: Less than monthly Total Score: 2 BRADFORD-7 AMB Questionnaire BRADFORD-7 Date BRADFORD - 7 assessed: 06/10/24 Feeling nervous, anxious, or on edge: 1 = Several days Not being able to stop or control worryin = Not at all Worrying too much about different things: 0 = Not at all Trouble relaxin = Not at all Being so restless that it is hard to sit still: 0 = Not at all Becoming easily annoyed or irritable: 0 = Not at all Feeling afraid as if something awful might happen: 0 = Not at all Total BRADFORD-7 score (0-4 normal; 5-9 mild; 10-14 moderate; 15-21 severe): 1 Source: Developed by Drs. Chuy Murillo, Nolvia Zamora, Gurmeet Ramos and colleagues, with an educational alfonso from [employer]. Physical exam (Primary Care) Vital Signs: Last Vital Signs Temp 97.6 F 06/10/24 09:09 Pulse 78 06/10/24 09:09 BP 116/70 06/10/24 09:09 Pulse Ox 98 06/10/24 09:09 Oxygen Delivery Method Room Air 06/10/24 09:09 BMI result Body Mass Index 27.4 Tobacco/Smoking Status: Tobacco use Status Tobacco use date assessed 06/10/24 06/10/24 09:11 Patient Tobacco Use Status Never used Tobacco 06/10/24 09:11 e-Cigarette/Vaping Use Never Used 06/10/24 09:11 PHQ-9: PHQ-9 Score PHQ-9: Total score 4 06/10/24 09:50 Thrive Assessment: Date of Thrive Assessment Date Thrive assessed 06/10/24 06/10/24 09:11 Coding Level of Care Code New Pt Level 4 (78613) Complex EM visit Add On G2211 Diagnoses Ileocolitis K52.9 Salmonella A02.9 Moderate persistent asthma without complication J45.40 Asthma complication type: uncomplicated Asthma persistence: persistent Asthma severity: moderate Demyelinating disease G37.9 Anxiety F41.9 Plantar fasciitis M72.2 Dysuria R30.0 Assessment & Plan Assessment & Plan (1) Ileocolitis: Code(s): K52.9 - Noninfective gastroenteritis and colitis, unspecified Category: Medical Plan: Likely inflammatory related to salmonella infection, however can not exclude IBD. Follow-up for colonoscopy as scheduled (2) Salmonella: Code(s): A02.9 - Salmonella infection, unspecified Category: Medical Plan: No severe infection at this time. Discussed the self-limited nature of disease. However, if symptoms worsen, advised to call the office or call the office if symptoms persist after 10 days. Antibiotics not indicated, discussed with patient. Use loperamide. We will check CBC, given watery diarrhea however may be attributed to Pepto-Bismol use. We will also check BNP (3) Asthma: Code(s): J45.909 - Unspecified asthma, uncomplicated Category: Medical Qualifiers: Asthma complication type: uncomplicated Asthma persistence: persistent Asthma severity: moderate Qualified Code(s): J45.40 - Moderate persistent asthma, uncomplicated Plan: Controlled. Continue Symbicort and use albuterol as needed (4) Demyelinating disease: Code(s): G37.9 - Demyelinating disease of central nervous system, unspecified Category: Medical Plan: Stable. Continue gabapentin follow-up with neurology as scheduled (5) Anxiety: Code(s): F41.9 - Anxiety disorder, unspecified Category: Medical Plan: Stable. Continue BuSpar (6) Plantar fasciitis: Code(s): M72.2 - Plantar fascial fibromatosis Category: Medical Plan: Recommended NSAIDs and conservative therapies including exercises, ice, supportive shoes and inserts. (7) Dysuria: Code(s): R30.0 - Dysuria Category: Medical Plan: UA/UC ordered Plan Follow-up in 6 months for physical exam Orders: Orders Erythrocyte Sedimentation Rate Today A02.9 - Salmonella infection, unspecified, K52.9 - Noninfective gastroenteritis and colitis, unspecified CRP High Sensitivity Today A02.9 - Salmonella infection, unspecified, K52.9 - Noninfective gastroenteritis and colitis, unspecified UA CC w/rflx Micro + Cult Today R30.0 - Dysuria Basic Metabolic Panel Today A02.9 - Salmonella infection, unspecified, K52.9 - Noninfective gastroenteritis and colitis, unspecified Complete Blood Count Auto Diff Today A02.9 - Salmonella infection, unspecified, K52.9 - Noninfective gastroenteritis and colitis, unspecified Medications: New loperamide Take 2 tabs at first episode of diarrhea, then 1 cap for each successive episode 2 mg PO Q6H PRN 30 caps 0RF loose stool ibuprofen 800 mg PO Q8H PRN 30 tabs 0RF pain
== END 2024-06-10 09:41 | disposition home or self-care (01) ==
LOC: HO.HMCHD 09:00
PROVIDERS: PCP Internal Medicine; Visit Provider Physician Assistant
DX: K52.9 Noninfective gastroenteritis and colitis, unspecified (principal); A02.9 Salmonella infection, unspecified; J45.40 Moderate persistent asthma, uncomplicated; G37.9 Demyelinating disease of central nervous system, unspecified; F41.9 Anxiety disorder, unspecified; M72.2 Plantar fascial fibromatosis; R30.0 Dysuria

== ENCOUNTER 2024-06-10 09:47 | Outpatient (REF) | payer OTHER, SELFPAY ==
[2024-06-10 11:42] LABS: MANUAL DIFF FLAG NO
[2024-06-10 11:52] LABS: Basophils Absolute Auto 0.1 X10*3/uL (0.0-0.2); Eosinophils Percent Auto 0.5 % (0-4); Hematocrit 38.8 % (37.0-47.0); Hemoglobin 12.3 g/dl (12.0-16.0); Imm Gran Abs Auto 0.03 X10*3/uL (0.00-0.03); Imm Gran Pct Auto 0.5 % (0.0-0.4); Lymphocytes Absolute Auto 1.7 X10*3/uL (1.2-4.9); Lymphocytes Percent Auto 27.7 % (20-40); Mean Corpuscular HGB Conc 31.7 g/dl (31.0-35.0); Mean Corpuscular Hemoglobin 26.8 pg (27.0-33.0); Mean Corpuscular Volume 84.5 fL (80.0-98.0); Mean Platelet Volume 10.3 fL (9.4-12.3); Monocytes Absolute Auto 0.7 X10*3/uL (0.1-1.2); Monocytes Percent Auto 10.8 % (2-11); NRBC Pct Auto 0.3 /100WBC (0.0-0.2); Neutrophils Absolute Auto 3.7 x10*3/uL (2.0-8.3); Neutrophils Percent Auto 59.5 % (45-73); Platelet Count 375 X10*3/uL (160-400); Red Blood Count 4.59 X10*6/uL (4.20-5.50); Red Cell Distribution Width 13.1 % (11.0-16.0); White Blood Count 6.2 X10*3/uL (4.8-10.8)
[2024-06-10 12:01] LABS: Anion Gap 14 (12-20); Blood Urea Nitrogen 8 mg/dL (9-16); Calcium 9.7 mg/dL (8.4-10.2); Carbon Dioxide 29 mmol/L (22-29); Chloride 103 mmol/L (96-108); Estimated Glomerular Filt Rate > 60; Glucose Random 87 mg/dL (60-115); Potassium 3.6 mmol/L (3.3-5.1); Sodium 142 mmol/L (135-145)
[2024-06-10 12:31] LABS: Erythrocyte Sedimentation Rate 18 MM/HR (0-20)
[2024-06-13 16:18] LABS: CRP High Sensitivity >20.0 mg/L
== END 2024-06-10 09:48 | disposition home or self-care (01) ==
LOC: HO.10HDL 09:47
PROVIDERS: Visit Provider Physician Assistant
DX: K52.9 Noninfective gastroenteritis and colitis, unspecified (principal); A02.9 Salmonella infection, unspecified
CPT/HCPCS: 36415; 80048; 85025; 85652; 86141

== ENCOUNTER 2024-08-08 15:35 | Outpatient (AMB) | payer OTHER, SELFPAY ==
--- NOTE | 2024-08-08 15:35 | A.OFFVIS_ITS ---
Vital Signs 08/08/24 15:42 Height 5 ft 1 in Weight 146 lb BMI 27.6 BP 114/72 Blood Pressure Location Rt brachial Position Sitting Pulse 86 Pulse Source Pulse Oximeter Pulse Oximetry (%) 98 Oxygen Delivery Method Room Air Intake Visit Reasons: colonoscopy screening Intake Note: New pt for initial colo screening. CC; C.O. diarrhea, difficulty with evacuating, no signs of hemo at this time, generalized abd pain, and progressively worsening GERD. Pt states that she was seen at [facility] ED for food poisoning 6 weeks ago where the ED physician noted increased GI inflammation. No pertinent FMHx. One colo done as a diagnostic to r/o various concerns while evaluating urology related concern per pt? Traveling Phlebotomist Required: No Accompanied by: Self / Same As Patient Allergies ciprofloxacin (From CIPRO) Allergy (Severe, Verified 08/08/24 15:36) SWELLING AND NUMBNESS HPI HPI colonoscopy screening: Details: 49 year old? female with past medical history of plantar fasciitis, anxiety, salmonella poisoning, ileocolitis from salmonella poisoning, asthma is here today for pre colonoscopy screening.? Patient was sent to us by her PCP.? Patient was seen in the ER few weeks ago for salmonella poisoning. Patient since then has been having GI symptoms. Abdominal pain bloating, epigastric pain, diarrhea. Denies melena, hematochezia, unintentional weight loss or ribbon like stools. Denies fever or chills. Denies any personal or family history of gastrointestinal disease, colon polyps, or CRC.? Denies history of difficulty with sedation or anesthesia in the past.? Negative for history of sleep apnea.? Denies any history of cardiac, renal, pulmonary, or hepatic disease.?? No history of infectious diseases like hepatitis A, B, C, HIV or tuberculosis.? Patient is not on any anticoagulation [facility] Medical History Demyelinating disease Chronic allergic rhinitis Asthma Cervical dysplasia Vaginal lump Complex ovarian cyst Kidney stone Surgical History H/O colonoscopy H/O LEEP H/O: hysterectomy Family History Mother Asthma Maternal Aunt Breast cancer Maternal Grandmother Breast cancer Social History Household Members: Spouse and Children Housing: House Alcohol intake: current Alcohol intake frequency: holidays/special occasions only Patient Tobacco Use Status: Never used Tobacco e-Cigarette/Vaping Use: Never Used service: No Current occupational status: employed 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 Sexual orientation: Straight/Heterosexual Gender identity: Female Cognitive needs: No Hearing needs: No Vision needs: Yes (rx glasses) Review of Systems Const Denies weight gain and Denies weight loss ENT Reports no additional complaints, Denies dysphagia and Denies odynophagia Card Reports no additional complaints Resp Reports no additional complaints GI Reports abdominal pain (middle of abd), Denies belching, Denies melena, Reports bloating, Denies change in bowel habits, Reports tenesmus, Denies dysphagia, Reports excessive flatus, Denies dyspepsia, Reports heartburn (occasional), Denies diarrhea, Reports loose stools, Reports nausea, Denies odynophagia and Denies vomiting Reports no additional complaints Musc Reports no additional complaints Neuro Reports no additional complaints Psych Reports no additional complaints Endo Reports no additional complaints Physical Exam Vital Signs: Last Vital Signs Pulse 86 08/08/24 15:42 BP 114/72 08/08/24 15:42 Pulse Ox 98 08/08/24 15:42 Oxygen Delivery Method Room Air 08/08/24 15:42 BMI result Body Mass Index 27.6 Const General: healthy appearing, no acute distress and well developed Nutritional Appearance: well nourished Orientation/consciousness: patient oriented x3 Resp Effort & Inspection: normal respiratory effort, able to speak in complete sentences, no tracheal deviation and symmetric chest movement Auscultation: clear to auscultation bilaterally Cardio Rate: regular rate GI Inspection: Yes normal to inspection and No distended Palpation (GI): Soft to palpation, not firm, nontender and No hepatosplenomegaly present Auscultation: normal bowel sounds General: Yes no CVA tenderness Back/Spine/Pelvis Back: no CVA tenderness Skin General skin exam: elasticity normal, turgor normal and dry skin Neuro General: patient oriented x3 Psych Appearance: grossly normal Mental Status: mental status grossly normal Assessment & Plan Assessment & Plan (1) Ileocolitis: Code(s): K52.9 - Noninfective gastroenteritis and colitis, unspecified Category: Medical (2) Postprandial abdominal bloating: Code(s): R14.0 - Abdominal distension (gaseous) (3) Diarrhea: Code(s): R19.7 - Diarrhea, unspecified Qualifiers: Diarrhea type: infectious Qualified Code(s): A09 - Infectious gastroenteritis and colitis, unspecified (4) Constipation: Code(s): K59.00 - Constipation, unspecified Qualifiers: Constipation type: slow transit constipation Qualified Code(s): K59.01 - Slow transit constipation (5) Screen for colon cancer: Code(s): Z12.11 - Encounter for screening for malignant neoplasm of colon Plan Patient continues with loose stools. Diagnosed with salmonella poisoning about few weeks ago. Abdominal pain and bloating. Denies any melena, hematochezia now. Patient reports constant epigastric pain and worse postprandially. Symptoms are definitely worse after salmonella poisoning. Patient will be sent for upper endoscopy. Will check B12, folate, vitamin-D level. Will check stool for parasite and ova, we will recheck GI panel to make sure that she no longer have salmonella. Will check CRP if positive we will do fecal calprotectin. Patient will take fiber supplements to help her bulk stools. Increase fluid intake recommended. Patient cardiac or respiratory symptoms.? Denies any issues with anesthesia in the past.? Denies any history of sleep apnea.? No history infectious diseases in the past or present.? Not on any anticoagulation therapy.? No family or personal history of colon cancer or polyps.? Patient denies melena, hematochezia, unintentional weight loss or ribbon like stools.? Discussed at length the pre-procedure,? prep, diet & medications as well as what to expect prior, during and after the procedure.?? Stressed the importance of good bowel prep.? Recommended the use of Vaseline or Calmoseptine OTC & baby wipes with bowel movements to promote comfort.? ?Patient verbalizes understanding and agrees to plan of care.? She was given the opportunity to ask questions and all questions answered.? We will see her after the procedure.? Orders: Orders TSH reflex Free T4 08/08/24 K59.00 - Constipation, unspecified Vitamin B12 and Folate 08/08/24 R19.7 - Diarrhea, unspecified Vitamin D 25-OH (D2 and D3) 08/08/24 E55.9 - Vitamin D deficiency, unspecified Ova and Parasite 08/08/24 R19.7 - Diarrhea, unspecified Leukocytes Stool Qualitative 08/08/24 R19.7 - Diarrhea, unspecified C Reactive Protein 08/08/24 K58.9 - Irritable bowel syndrome, unspecified Transglutaminase IgA 08/08/24 R10.9 - Unspecified abdominal pain GI Panel 08/08/24 R19.7 - Diarrhea, unspecified Medications: New methylcellulose (laxative) (Citrucel) 500 mg PO BID 60 tabs 2RF bisacodyl (Dulcolax (bisacodyl)) take 4 tabs at noon the day before your colonoscopy 20 mg (4 x 5 mg) PO ONCE 4 tabs 0RF constipation 1 day Z12.11 - Encounter for screening for malignant neoplasm of colon polyethylene glycol 3350 (Miralax) As directed by gastroenterology department at [facility] 238 grams PO ONCE 238 grams 0RF Z12.11 - Encounter for screening for malignant neoplasm of colon Coding Level of Care Code New Pt Level 4 (53025) Diagnoses Ileocolitis K52.9 Postprandial abdominal bloating R14.0 Diarrhea of infectious origin A09 Diarrhea type: infectious Slow transit constipation K59.01 Constipation type: slow transit constipation Screen for colon cancer Z12.11 Time Spent (min) 50 Comment 35 minutes spent with patient and additional 15 minutes spent reviewing her records
[2024-08-08 15:42] VITALS: BP 114/72; PULSE 86; O2SAT 98; BMI 27.6
== END 2024-08-08 16:41 | disposition home or self-care (01) ==
LOC: HO.HGI 15:35
PROVIDERS: PCP Internal Medicine; Visit Provider Nurse Practitioner Family
DX: A09 Infectious gastroenteritis and colitis, unspecified (principal); R14.0 Abdominal distension (gaseous); K59.01 Slow transit constipation; K52.9 Noninfective gastroenteritis and colitis, unspecified; Z12.11 Encounter for screening for malignant neoplasm of colon
CPT/HCPCS: 99204

== ENCOUNTER 2024-08-30 08:20 | Outpatient (REF) | payer OTHER, SELFPAY ==
--- OUTSIDE RECORDS SUMMARY | 2024-08-30 08:29 | XMS_ITS | Clinical Summary ---
Author Organization [facility] Address [address] [place] [id number] Phone Care Team Providers Care Hat Body Inspector Name Role Phone Jefe Luna MD Primary Care Provider Allergies No known active allergies Medications LYRICA 100 mg capsule 06/10/2023 Active buspirone HCl (BUSPIRONE ORAL) 05/15/2022 [facility] or Other Facility Administered Medication Ordered Dose Route Frequency Start Date End Date Status dexAMETHasone (PF) (DECADRON) injection 10 mgIndications:Disord er of sacrum 10 mg See Adm Inst Once 05/05/2024 08/03/2024 Ended Active Problems Problem Noted Date Diagnosed Date Disorder of sacrum 05/05/2024 Social History Tobacco Use Types Packs/Day Years Used Date Smoking Tobacco: Never Assessed Education Answer Date Recorded Are you interested in more education? Not on noy e 12/04/2023 Are you concerned about learning? Not on file 12/04/2023 No 12/04/2023 No 12/04/2023 Digital Access Answer Date Recorded No 12/04/2023 No 12/04/2023 Reliable internet access at home? Not on file 12/04/2023 Device with a working camera? Not on file Comments Unknown Sex and Gender Information Value Date Recorded Sex Assigned at Not on file Legal Sex Female 9:39 AM EDT Gender Identity Not on file Sexual Orientation Not on file Last Filed Vital Signs Vital Sign Reading Time Taken Comments Blood Pressure - - Pulse 78 04/13/2024 9:33 AM EST Temperature 36.4 C (97.6 F) 04/13/2024 9:33 AM EST Respiratory Rate - - Oxygen Saturation 100% 04/13/2024 9:33 AM EST Inhaled Oxygen Concentration - - Weight 67.2 kg (148 lb 3.2 oz) 04/13/2024 9:33 A M EST Height 154.9 cm (5' 1 ) 04/13/2024 9:33 AM EST Body Mass Index 28 04/13/2024 9:33 AM EST Plan of Treatment Upcoming Encounters Date Type Department Care Team (Late st Contact Info) Description 09/02/2024 10:20 AM EDT Telemedicine - audio only [facility] Spine Medicine [address] [place] [address] Kevin Hicks MD 22 [facility], [address] [place] [address] Health Maintenance Due Date Last Done Comments Adult Td,Tdap Booster 1977 LIPID PANEL 1977 DEPRESSION SCREENING 1989 SMOKING Hx and SMOKELESS TOB ACCO SCREENING 1990 HEPATITIS C SCREENING 1995 HIV ONE-TIME SCREENING (18-6 5 YEARS) 1995 PAP SMEAR 1998 SCREENING FOR DIABETES 01/19/2012 MAMMOGRAM 2017 COLOGUARD 2022 COLONOSCOPY 2022 COLORECTAL CANCER SCREENING 2022 FIT TEST 2022 FOBT 2022 SIGMOIDOSCOPY 2022 VIRTUAL COLONOSCOPY 2022 COVID-19 VACCINE ( - 2023-2 5 season) 2023 HEPATITIS A VACCINES Aged Out No long er eligible based on patient's age to complete this topic HIB VACCINES Aged Out No longer eligi ble based on patient's age to complete this topic MENINGOCOCCAL VACCINES (ACWY) Aged Out No longer eligible based on patient's age to complete this topic MENINGOCOCCAL VACCINES (B) Aged Out N o longer eligible based on patient's age to complete this topic PNEUMOCOCCAL VACCINES (0-49 years) Aged Out No longer eligible based on patient's age to complete this topic Medical Devices Not on file Insurance [employer]IC [employer]ERCIAL Member Subscriber Plan / Payer ( fective 2021-Present) Name:Shannon Cruz Relation to Subscriber:Self Name:Shannon Cruz Payer ID:Not on file Group ID:[id number] Type:Indemnity Address: [address] [place] [address] GENERIC COMMERCIAL Member Subscriber Plan / Payer ( fective 2021-) Name:Shannon Cruz Relation to Subscriber:Self Name:Shannon Cruz Payer ID:Not on file Group ID:[id number] Type:Indemnity Address: [place] [address] GENERIC COMMERCIAL Member Subscriber Plan / Payer ( fective 2021-) Name:Shannon Cruz Relation to Subscriber:Self Name:Shannon Cruz Payer ID:Not on file Group ID:[id number] Type:Indemnity Address: .O [facility] [id number] [place] [address] GENERIC COMMERCIAL Member Subscriber Plan / Payer (Ef fective 2021-Present) Name:Shannon Cruz Relation to Subscriber:Self Name:Shannon Cruz Payer ID:Not on file Group ID:[id number] Type:Indemnity Address: [id number] [place] [address] GENERIC COMMERCIAL Member Subscriber Plan / Payer ( fective 2021-Present) Name:Shannon Cruz Relation to Subscriber:Self Name:Shannon Cruz Payer ID:Not on file Group ID:[id number] Type:Indemnity Address: [id number] [place] [address] GENERIC COMMERCIAL Member Subscriber Plan / Payer ( fective 2021-Present) Name:Shannon Cruz Relation to Subscriber:Self Name:Shannon Cruz Payer ID:Not on file Group ID:[id number] Type:Indemnity Address: [phone] [place] [address] Care Teams Hat Body Inspector Relationship Specialty Start Date End Date Jefe Luna MD [address] [place] [address] [place] [address] PCP - General Internal Medicine 09/04/23 Additional Source Comments The information contained in this document represents components of the legal health record. It is not the complete legal health record.[facility]
[2024-08-30 09:49] LABS: Folate 10.0 ng/mL (> or = 4.0); Vitamin B12 752 pg/mL (200-900)
[2024-09-04 15:43] LABS: Vitamin D 25-OH, D2 <4 ng/mL; Vitamin D 25-OH, D3 17 ng/mL; Vitamin D 25-OH, Total 17 ng/mL (30-100)
== END 2024-08-30 08:21 | disposition home or self-care (01) ==
LOC: HO.LAB 08:20
PROVIDERS: PCP Internal Medicine; Visit Provider Nurse Practitioner Family
DX: E55.9 Vitamin D deficiency, unspecified (principal); K58.9 Irritable bowel syndrome, unspecified; R10.9 Unspecified abdominal pain; K59.00 Constipation, unspecified; R19.7 Diarrhea, unspecified
CPT/HCPCS: 36415; 82306; 82607; 82746; 84443; 86140; 86364

== ENCOUNTER 2024-09-02 08:47 | Outpatient (REF) | payer OTHER, SELFPAY ==
--- OUTSIDE RECORDS SUMMARY | 2024-09-02 09:03 | XMS_ITS | Clinical Summary ---
Author Organization [facility] Address [address] [place] [phone] Phone Care Team Providers Care Glass Technician/Installer Name Role Phone Jefe Luna MD Primary Care Provider Allergies No known active allergies Medications LYRICA 100 mg capsule 06/10/2023 Active buspirone HCl (BUSPIRONE ORAL) 05/15/2022 [facility], [facility], or Other Facility Administered Medication Ordered [...] 10:20 AM EDT Telemedicine - audio only [facility] Spine Medicine [address] [place] [address] Kevin Hicks MD 22 [facility], [address] [place] [address] Health Maintenance Due Date Last Done Comments [...] file Group ID:[id number] Type:Indemnity Address: [address] [place] [address] GENERIC COMMERCIAL Member Subscriber Plan / Payer ( fective 2021-) Name:Shannon Cruz Relation to Subscriber:Self Name:Shannon Cruz Payer ID:Not on file Group ID:[id number] Type:Indemnity Address: [address] [address] [place] [address] GENER[employer] COMMERCIAL Member Subscriber Plan / Payer ( fective 2021-) Name:Shannon Cruz Relation to Subscriber:Self Name:Shannon Cruz Payer ID:Not on file Group ID:[id number] Type:Indemnity Address: [address]O [facility] [id number] [place] [address] GENERIC COMMERCIAL Member Subscriber Plan / Payer (Ef fective 2021-Present) Name:Shannon Cruz Relation to Subscriber:Self Name:Shannon Cruz Payer ID:Not on file Group ID:[id number] Type:Indemnity Address: [phone] [place] [address] GENERIC COMMERCIAL Member Subscriber Plan / Payer ( fective 2021-Present) Name:Shannon Cruz Relation to Subscriber:Self Name:Shannon Cruz Payer ID:Not on file Group ID:[id number] Type:Indemnity Address: [phone] [place] [address] GENERIC COMMERCIAL Member Subscriber Plan / Payer ( fective 2021-Present) Name:Shannon Cruz Relation to Subscriber:Self Name:Shannon Cruz Payer ID:Not on file Group ID:[id number] Type:Indemnity Address: [id number] [place] [address] Care Teams Glass Technician/Installer Relationship Specialty Start Date End Date Jefe Luna MD [address] [place] [address] [place] [address] PCP - General Internal Medicine 09/04/23 Additional Source Comments The information contained in this document represents components of the legal health record. It is not the complete legal health record.[facility]
[2024-09-02 10:16] LABS: Leukocytes Stool Qualitative NEGATIVE (NEGATIVE)
[2024-09-02 15:14] LABS: E. coli EAEC Not Detected (Not Detect.); E. coli EPEC Not Detected (Not Detect.); E. coli ETEC Not Detected (Not Detect.); E. coli STEC Not Detected (Not Detect.); Shigella sp./EIEC Not Detected (Not Detect.)
== END 2024-09-02 08:48 | disposition home or self-care (01) ==
LOC: HO.LNP 08:47
PROVIDERS: Visit Provider Nurse Practitioner Family
DX: R19.7 Diarrhea, unspecified (principal)
CPT/HCPCS: 87177; 87209; 87507; 89055

== ENCOUNTER 2024-09-16 11:39 | Day surgery (SDC) | payer OTHER, SELFPAY ==
[2024-09-14 09:30] VITALS: BMI 27.6
--- NOTE | 2024-09-15 10:36 | HO.ANESPROP2 ---
Documented by User: Cami Price NP 09/15/24 10:37 HPI - Anesthesia Eval Consult details Narrative: 49yo F for Upper Endoscopy and Colonoscopy PMF Active Problems Active Problems: All Active Problems Plantar fasciitis (Acute) Dysuria (Acute) Anxiety (Acute) Demyelinating disease (Acute) Salmonella (Acute) Ileocolitis (Acute) Chronic allergic rhinitis (Acute) Asthma (Acute) Hot flashes (Acute) At high risk for breast cancer (Acute) Well woman exam (Acute) Past Medical History Medical History Demyelinating disease Chronic allergic rhinitis Asthma Cervical dysplasia Vaginal lump Complex ovarian cyst Kidney stone Family History Family History Mother Asthma Maternal Aunt Breast cancer Maternal Grandmother Breast cancer Surgical History Surgical History Hx of cystoscopy Hx of lithotripsy H/O colonoscopy H/O LEEP H/O: hysterectomy Social History Social History Household Members: Spouse and Children Housing: House Alcohol intake: current Alcohol intake frequency: holidays/special occasions only Patient Tobacco Use Status: Never used Tobacco e-Cigarette/Vaping Use: Never Used Use of substances other than those prescribed or required for medical reasons: No Are you DNR?: No Advance Directives: No Advance Directives Information Provided: Yes service: No Current occupational status: employed 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 Sexual orientation: Straight/Heterosexual Gender identity: Female Cognitive needs: No Hearing needs: No Vision needs: Yes (rx glasses) Meds Allergies Allergy/AdvReac Type Severity Reaction Status Date / Time ciprofloxacin (From CIPRO) Allergy Severe SWELLING Verified 09/16/24 12:18 AND NUMBNESS Home Medications ?Medication ?Instructions ?Recorded ?Confirmed ?Last Taken ?Type albuterol sulfate 90 mcg/actuation 2 puff inhalation QID PRN 01/13/22 09/16/24 09/16/24 08:30 History aerosol inhaler Shortness Of Breath Or Wheezing ipratropium 0.5 mg-albuterol 3 mg ml inhalation BID PRN Shortness Of 01/13/22 06/10/24 Unknown History (2.5 mg base)/3 mL nebulization Breath Or Wheezing soln nebulizers 11/11/22 06/10/24 Unknown History buspirone 5 mg tablet 5 mg PO BID PRN Anxiety 04/09/23 06/10/24 Unknown History pregabalin 100 mg capsule 100 mg PO TID 08/08/24 Unknown History Exam Height,Weight and Vital Signs: Height 5 ft 1 in Weight 66.224 kg Assessment and Plan Assessment Anesthesia Assessment: Chart Reviewed Documented by User: William Murray MD 09/16/24 13:45 [facility] Past Medical History Medical History Demyelinating disease Chronic allergic rhinitis Asthma Cervical dysplasia Vaginal lump Complex ovarian cyst Kidney stone Patient : No Family History Family History Mother Asthma Maternal Aunt Breast cancer Maternal Grandmother Breast cancer Family history of problems with anesthesia: No Surgical History Surgical History Hx of cystoscopy Hx of lithotripsy H/O colonoscopy H/O LEEP H/O: hysterectomy History of Problems with Anesthesia: No Social History Social History Household Members: Spouse and Children Housing: House Alcohol intake: current Alcohol intake frequency: holidays/special occasions only Patient Tobacco Use Status: Never used Tobacco e-Cigarette/Vaping Use: Never Used Use of substances other than those prescribed or required for medical reasons: No Are you DNR?: No Advance Directives: No Advance Directives Information Provided: Yes service: No Current occupational status: employed 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 Sexual orientation: Straight/Heterosexual Gender identity: Female Cognitive needs: No Hearing needs: No Vision needs: Yes (rx glasses) Meds Allergies Allergy/AdvReac Type Severity Reaction Status Date / Time ciprofloxacin (From CIPRO) Allergy Severe SWELLING Verified 09/16/24 12:18 AND NUMBNESS Home Medications ?Medication ?Instructions ?Recorded ?Confirmed ?Last Taken ?Type albuterol sulfate 90 mcg/actuation 2 puff inhalation QID PRN 01/13/22 09/16/24 09/16/24 08:30 History aerosol inhaler Shortness Of Breath Or Wheezing ipratropium 0.5 mg-albuterol 3 mg ml inhalation BID PRN Shortness Of 01/13/22 06/10/24 Unknown History (2.5 mg base)/3 mL nebulization Breath Or Wheezing soln nebulizers 11/11/22 06/10/24 Unknown History buspirone 5 mg tablet 5 mg PO BID PRN Anxiety 04/09/23 06/10/24 Unknown History pregabalin 100 mg capsule 100 mg PO TID 08/08/24 Unknown History Exam Airway Mallampati Class: I TM Dist: <=3cm Neck ROM: Full Loose/Missing/Broken Teeth: No Heart: ok Lungs: ok Assessment and Plan Assessment Anesthesia Assessment: Anesthesia Plan Discussed Final Anesthetic Review Family History of Problems with Anesthesia: No History of Problems with Anesthesia: No NPO: Yes ASA Class: III Final Preanesthetic Review: No Changes in Pt Med Stat, Meds/Allgs Chart Reviewed, Consent Obtained/Reviewed and Anes Risks/Benef Reviewed Patient Risk: Intermediate Procedure Risk: Intermediate Anesthetic Plan Anesthetic Plan: Agree w/ Assess. and Plan and TIVA Disposition: Standard PACU
[2024-09-16 12:27] VITALS: BMI 27.4
[2024-09-16 12:30] VITALS: BP 113/70; PULSE 82; RESP 15; TEMP 36.6; O2SAT 100
[2024-09-16] MEDS: Lactated Ringers 1,000 ML 100 ML IVCONT (12:40)
--- NOTE | 2024-09-16 13:01 | MHC.SHP ---
Pre-Procedural Eval Section A - 24 Hr Update-Section A only Date of Service: 09/16/24 Section B - Complete if H&P > 30 days Chief Complaint: screening, abdominal pain, bloating, diarrhea Relevant Family History (Specify if Yes): No Relevant Social History: None Present Medications: see Short Stay Collaborative assessment Medical History: Significant History (Demyelinating disease Chronic allergic rhinitis Asthma Cervical dysplasia Vaginal lump Complex ovarian cyst Kidney stone) History of Previous Operations: Relevant previous surgery/procedure and date(s) (H/O colonoscopy H/O LEEP H/O: hysterectomy) Allergies: Allergies Allergy/AdvReac Type Severity Reaction Status Date / Time ciprofloxacin (From CIPRO) Allergy Severe SWELLING Verified 09/16/24 12:18 AND NUMBNESS Review of Systems Sugical H&P ROS: Negative: Constitution, Cardiovascular, Respiratory and Gastrointestinal Exam Surgical H&P Exam: Normal: Heart, Normal: Lungs, Normal: Extremities and Normal: Abdomen Plan Diagnosis/Plan: Unchanged I have reviewed the history and physical and performed a pertinent physical examination on my patient. No changes have occurred unless specified. Time Spent With Patient Time: Total time managing care of this patient today ____ minutes.
--- NOTE | 2024-09-16 14:05 | P.OPN-COLO_ITS ---
Colonoscopy Operative Note Operative Note Date of Service: 09/16/24 Narrative: FLEXIBLE TRANSORAL UPPER GASTROINTESTINAL ENDOSCOPY WITH BIOPSIES AND SNARE POLYPECTOMY AND COLONOSCOPY TILL CECUM WITH BIOPSIES Pre-op diagnosis: Colon cancer screening, abdominal pain, bloating, diarrhea Post-op diagnosis: Gastritis, gastric polyps, diverticulosis, hemorrhoids Endoscopist:Merlin Fernández MD Anesthesia:?MAC UPPER ENDOSCOPY Consent: Indications for the procedure and potential complications of bleeding, perforation, reaction to medications and missed diagnosis were discussed with the patient and informed consent was obtained. Instrument: Olympus GIF H 190 mid size upper endoscope Monitoring: Vital signs and clinical assessment, continuous EKG monitoring, Pulse oximetry, Carbon Dioxide monitoring and blood pressure monitoring were done throughout the procedure. Procedure: The patient was placed in the left lateral decubitis position and pre-procedure medications were administered and a bite block was placed. The endoscope was inserted into the mouth and advanced under direct vision to the third part of duodenum. A careful inspection was made as the upper endoscope was withdrawn including a retroflexed examination of the proximal stomach; Findings and interventions are described below. Findings: Larynx: Normal Esophagus: GE junction at 36cms. No esophagitis or Gautam's. Stomach: A few 5 - 10 mm benign appearing polyps in the gastric body - one polyp was removed with a cold snare. Mild gastric antral erythema - biopsies were obtained to check for Helicobacter pylori. Grade 1 flap valve on retroflexed examination of the cardia. Duodenum: Normal bulb and descending duodenum Biopsies were obtained from descending duodenum to check for celiac sprue Intervention: Biopsies as noted above COLONOSCOPY PROCEDURE NOTE Instrument: Olympus PCF H 190 L variable stiffness pediatric colonoscope Monitoring: Vital signs and clinical assessment, intermittent blood pressure monitoring, continuous EKG monitoring, Pulse oximetry and Carbon Dioxide monitoring were done throughout the procedure. Please see anesthesia flowsheet. Colon withdrawl time was 16 minutes. Procedure: The patient was placed in the left lateral decubitis position and pre-procedure medications were administered. After a digital rectal examination of the ano-rectum, the video colonoscope was inserted into the rectum and advanced through the colon to the cecum. The colonoscope was slowly withdrawn in a retrograde panoramic fashion and the colon mucosa was carefully examined including a retroflexed view of the rectum. Findings and interventions are described below. Procedure Difficulty: without difficulty Findings: Terminal Ileum: Not evaluated Cecum: Normal Ascending Colon: Normal Transverse Colon: Normal Descending Colon: Moderate diverticulosis Sigmoid Colon: Moderate diverticulosis Rectum: Normal Ano-rectum: Moderate internal hemorrhoids Colon preparation: Excellent after some irrigation. [place] Bowel Preparation Scale Right colon; 3 Transverse colon: 3 Left colon; 3 (0 = Unprepared colon segment with mucosa not seen due to solid stool that cannot be cleared. 1 = Portion of mucosa of the colon segment seen, but other areas of the colon segment not well seen due to staining, residual stool and/or opaque liquid. 2 = Minor amount of residual staining, small fragments of stool and/or opaque liquid, but mucosa of colon segment seen well. 3 = Entire mucosa of colon segment seen well with no residual staining, small fragments of stool or opaque liquid) Impression and Post Procedure Diagnosis: Endoscopy Findings: ESOPHAGUS: Normal STOMACH: Mild antral gastritis and benign-appearing gastric polyps DUODENUM: Normal - biopsied to check for celiac sprue Colonoscopy Findings: No polyps were detected Random biopsies were obtained from the right and left colon to check for microscopic colitis Moderate diverticulosis seen in the left colon Moderate hemorrhoids on retroflexed exam. Plan: Pt has a FU appointment on 10/26/24 with Bess Solis NP Repeat Colonoscopy in 10 years if colon biopsies are normal. A summary of above findings and relevant handouts were given to the patient. BIOPSIES SHOWED: Diagnosis A. Small bowel, biopsy: Small bowel mucosa with preserved villi and no specific change; no evidence of celiac disease. B. Gastric antrum, biopsy: Gastric antral mucosa with ectatic vessels, mild reactive changes, and minimal chronic inactive gastritis; negative for intestinal metaplasia and dysplasia. C. Gastric polyp: Fundic gland polyp with focal minimal chronic inactive inf lammation; negative for intestinal metaplasia and dysplasia. D. Colon, right, biopsy: Colonic mucosa with focal possible increased intraepithelial lymphocytes. E. Colon, left, biopsy: Colonic mucosa with focal possible increased intraepithelial lymphocytes. Addendum #1 Immunostains for H. pylori on B and C are negative. Stain for CD3 shows focal increased intraepithelial lymphocytes on D and E. Controls stain appropriately. Additional H&E tissue levels on D and E are also examined, showing increased intraepithelial lymphocytes, and focal surface epithelial damage in D. Appearances suggest lymphocytic colitis inflammatory pattern which may be due to drugs, infections, autoimmune processes, and post-treatment inflammatory bowel disease. Clinical correlation is necessary. No organisms, cryptitis, or significant neutrophilic infiltrate seen.
[2024-09-16 14:38] VITALS: BP 94/59; PULSE 73; RESP 17; TEMP 36.3; O2SAT 97
[2024-09-16 14:53] VITALS: BP 102/67; PULSE 66; RESP 16; TEMP 36.5; O2SAT 100
== END 2024-09-16 15:39 | disposition home or self-care (01) ==
PROVIDERS: PCP Internal Medicine; Visit Provider Internal Medicine Gastroenterology
PROC: (CPT 45380; principal; 2024-09-16 13:50)
DX: Z12.11 Encounter for screening for malignant neoplasm of colon (principal); K57.30 Diverticulosis of large intestine without perforation or abscess without bleeding; K64.8 Other hemorrhoids; K59.01 Slow transit constipation; R10.9 Unspecified abdominal pain; A09 Infectious gastroenteritis and colitis, unspecified; R14.0 Abdominal distension (gaseous); K21.9 Gastro-esophageal reflux disease without esophagitis; K29.50 Unspecified chronic gastritis without bleeding; K31.7 Polyp of stomach and duodenum; G37.9 Demyelinating disease of central nervous system, unspecified; J45.909 Unspecified asthma, uncomplicated; E55.9 Vitamin D deficiency, unspecified; Z87.442 Personal history of urinary calculi; Z98.890 Other specified postprocedural states; Z88.1 Allergy status to other antibiotic agents
CPT/HCPCS: 45380; 43251; 43239; 88305; 88342; J2003; J2704

== ENCOUNTER → 2024-09-16 11:39 | Outpatient (BNV) | payer OTHER, SELFPAY | PROVIDERS: PCP Internal Medicine; Visit Provider Internal Medicine Gastroenterology | DX: Z12.11 Encounter for screening for malignant neoplasm of colon (principal); R10.9 Unspecified abdominal pain; K57.90 Diverticulosis of intestine, part unspecified, without perforation or abscess without bleeding; K64.8 Other hemorrhoids; K31.7 Polyp of stomach and duodenum; K29.70 Gastritis, unspecified, without bleeding | CPT/HCPCS: 43251; 45380 ==

== ENCOUNTER 2024-10-26 13:43 | Outpatient (AMB) | payer OTHER, SELFPAY ==
--- NOTE | 2024-10-26 13:47 | MHC.OFFVIS ---
Vital Signs 10/26/24 13:51 Height 5 ft 1 in Weight 146 lb BMI 27.6 BP 112/70 Blood Pressure Location Rt brachial Position Sitting Pulse 80 Pulse Source Pulse Oximeter Pulse Oximetry (%) 99 Oxygen Delivery Method Room Air Intake Visit Reasons: s/p double Pradeep Intake Note: Est pt for mgmt of constipation and GERD. S/P Double. CC: C.O. intermittent episodes with diarrhea. Pt also reports occasional constipation but states that she more often experiences loose stools. No additional sx or concerns at this time. 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 Diagnosed with salmonella poisoning about few weeks ago. Abdominal pain and bloating. Denies any melena, hematochezia now. Patient reports constant epigastric pain and worse postprandially. Symptoms are definitely worse after salmonella poisoning. Patient will be sent for upper endoscopy. Will check B12, folate, vitamin-D level. Will check stool for parasite and ova, we will recheck GI panel to make sure that she no longer have salmonella. Will check CRP if positive we will do fecal calprotectin. Patient will take fiber supplements to help her bulk stools. Increase fluid intake recommended. Patient cardiac or respiratory symptoms.? Denies any issues with anesthesia in the past.? Denies any history of sleep apnea.? No history infectious diseases in the past or present.? Not on any anticoagulation therapy.? No family or personal history of colon cancer or polyps.? Patient denies melena, hematochezia, unintentional weight loss or ribbon like stools.? Discussed at length the pre-procedure,? prep, diet & medications as well as what to expect prior, during and after the procedure.?? Stressed the importance of good bowel prep.? Recommended the use of Vaseline or Calmoseptine OTC & baby wipes with bowel movements to promote comfort.? ?Patient verbalizes understanding and agrees to plan of care.? She was given the opportunity to ask questions and all questions answered.? We will see her after the procedure.? Orders TSH reflex Free T4 08/08/24 K59.00 Vitamin B12 and Folate 08/08/24 R19.7 Vitamin D 25-OH (D2 and D3) 08/08/24 E55.9 Ova and Parasite 08/08/24 R19.7 Leukocytes Stool Qualitative 08/08/24 R19.7 C Reactive Protein 08/08/24 K58.9 Transglutaminase IgA 08/08/24 R10.9 GI Panel 08/08/24 R19.7 New methylcellulose (laxative) (Citrucel) 500 mg PO BID 60 tabs 2RF bisacodyl (Dulcolax (bisacodyl)) take 4 tabs at noon the day before your colonoscopy 20 mg (4 x 5 mg) PO ONCE 4 tabs 0RF constipation 1 day Z12.11 polyethylene glycol 3350 (Miralax) As directed by gastroenterology department at [facility] 238 grams PO ONCE 238 grams 0RF Z12.11 UPPER ENDOSCOPY AND COLONOSCOPY Findings: Larynx: Normal Esophagus: GE junction at 36cms. No esophagitis or Gautam's. Stomach: A few 5 - 10 mm benign appearing polyps in the gastric body - on polyp was removed with a cold snare. Mild gastric antral erythema - biopsies were obtained to check for Helicobacter pylori. Grade 1 flap valve on retroflexed examination of the cardia. Duodenum: Normal bulb and descending duodenum Biopsies were obtained from descending duodenum to check for celiac sprue Intervention: Biopsies as noted above COLONOSCOPY PROCEDURE NOTE Instrument: Olympus PCF H 190 L variable stiffness pediatric colonoscope Monitoring: Vital signs and clinical assessment, intermittent blood pressure monitoring, continuous EKG monitoring, Pulse oximetry and Carbon Dioxide monitoring were done throughout the procedure. Please see anesthesia flowsheet. Colon withdrawl time was 16 minutes. Procedure: The patient was placed in the left lateral decubitis position and pre-procedure medications were administered. After a digital rectal examination of the ano-rectum, the video colonoscope was inserted into the rectum and advanced through the colon to the cecum. The colonoscope was slowly withdrawn in a retrograde panoramic fashion and the colon mucosa was carefully examined including a retroflexed view of the rectum. Findings and interventions are described below. Procedure Difficulty: without difficulty Findings: Terminal Ileum: Not evaluated Cecum: Normal Ascending Colon: Normal Transverse Colon: Normal Descending Colon: Moderate diverticulosis Sigmoid Colon: Moderate diverticulosis Rectum: Normal Ano-rectum: Moderate internal hemorrhoids Colon preparation: Excellent after some irrigation. Ewing Bowel Preparation Scale Right colon; 3 Transverse colon: 3 Left colon; 3 (0 = Unprepared colon segment with mucosa not seen due to solid stool that cannot be cleared. 1 = Portion of mucosa of the colon segment seen, but other areas of the colon segment not well seen due to staining, residual stool and/or opaque liquid. 2 = Minor amount of residual staining, small fragments of stool and/or opaque liquid, but mucosa of colon segment seen well. 3 = Entire mucosa of colon segment seen well with no residual staining, small fragments of stool or opaque liquid) Impression and Post Procedure Diagnosis: Endoscopy Findings: ESOPHAGUS: Normal STOMACH: Mild antral gastritis and benign-appearing gastric polyps DUODENUM: Normal - biopsied to check for celiac sprue Colonoscopy Findings: No polyps were detected Random biopsies were obtained from the right and left colon to check for microscopic colitis Moderate diverticulosis seen in the left colon Moderate hemorrhoids on retroflexed exam. Plan: Repeat Colonoscopy in 10 years if colon biopsies are normal. A summary of above findings and relevant handouts were given to the patient. BIOPSIES SHOWED: Diagnosis A. Small bowel, biopsy: Small bowel mucosa with preserved villi and no specific change; no evidence of celiac disease. B. Gastric antrum, biopsy: Gastric antral mucosa with ectatic vessels, mild reactive changes, and minimal chronic inactive gastritis; negative for intestinal metaplasia and dysplasia. C. Gastric polyp: Fundic gland polyp with focal minimal chronic inactive inflammation; negative for intestinal metaplasia and dysplasia. D. Colon, right, biopsy: Colonic mucosa with focal possible increased intraepithelial lymphocytes. E. Colon, left, biopsy: Colonic mucosa with focal possible increased intraepithelial lymphocytes. Addendum #1 Immunostains for H. pylori on B and C are negative. Stain for CD3 shows focal increased intraepithelial lymphocytes on D and E. Controls stain appropriately. Additional H&E tissue levels on D and E are also examined, showing increased intraepithelial lymphocytes, and focal surface epithelial damage in D. Appearances suggest lymphocytic colitis inflammatory pattern which may be due to drugs, infections, autoimmune processes, and post-treatment inflammatory bowel disease. Clinical correlation is necessary. No organisms, cryptitis, or significant neutrophilic infiltrate seen. TODAY'S VISIT: Patient is here today for follow-up and to discuss upper endoscopy and colonoscopy results. Patient denies any ill effects from the prep, anesthesia or procedure itself. Patient continues to have occasional loose stools. Reports not as often as before. Patient does admit also to having constipation. History of salmonella poisoning in the past. Results from endoscopy and colonoscopy discussed with patient. Patient reports that omeprazole is helping with reflux. Denies dyspepsia, dysphagia or odynophagia. Denies melena, hematochezia. Patient had normal colonoscopy, can return in 10 years sooner if clinically necessary. Patient denies any other GI concerning symptoms. Patient did change some of her diet. Does follow as much as she can low FODMAP diet. Currently patient is not taking any fiber. [facility] Medical History Demyelinating disease Chronic allergic rhinitis Asthma Cervical dysplasia Vaginal lump Complex ovarian cyst Kidney stone Surgical History (Updated 10/26/24 @ 13:54 by NURIA Tubbs) History of esophagogastroduodenoscopy (EGD) Hx of cystoscopy Hx of lithotripsy H/O colonoscopy (09/16/24) H/O LEEP H/O: hysterectomy Family History Mother Asthma Maternal Aunt Breast cancer Maternal Grandmother Breast cancer Social History Household Members: Spouse and Children Housing: House Alcohol intake: current Alcohol intake frequency: holidays/special occasions only Patient Tobacco Use Status: Never used Tobacco e-Cigarette/Vaping Use: Never Used service: No Current occupational status: employed 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 Sexual orientation: Straight/Heterosexual Gender identity: Female Cognitive needs: No Hearing needs: No Vision needs: Yes (rx glasses) Physical Exam Vital Signs: Last Vital Signs Pulse 80 10/26/24 13:51 BP 112/70 10/26/24 13:51 Pulse Ox 99 10/26/24 13:51 Oxygen Delivery Method Room Air 10/26/24 13:51 BMI result Body Mass Index 27.6 Assessment & Plan Assessment & Plan (1) Ileocolitis: Code(s): K52.9 - Noninfective gastroenteritis and colitis, unspecified Category: Medical (2) Postprandial abdominal bloating: Code(s): R14.0 - Abdominal distension (gaseous) (3) Diarrhea: Code(s): R19.7 - Diarrhea, unspecified Qualifiers: Diarrhea type: functional diarrhea Qualified Code(s): K59.1 - Functional diarrhea (4) Constipation: Code(s): K59.00 - Constipation, unspecified Qualifiers: Constipation type: slow transit constipation Qualified Code(s): K59.01 - Slow transit constipation (5) GERD (gastroesophageal reflux disease): Code(s): K21.9 - Gastro-esophageal reflux disease without esophagitis Qualifiers: Esophagitis presence: without esophagitis Qualified Code(s): K21.9 - Gastro-esophageal reflux disease without esophagitis Plan Patient will continue taking omeprazole daily. Avoid dietary triggers and late night snacking. Staying upright for minimum 3 hours after meals discussed with patient. Patient was encouraged to take [id number] fiber with pre and probiotics to help her bulk stools. Increase fluid intake and activity to promote better bowel motility. Patient will follow-up in 6 months, sooner on as needed basis. She is agreeable to this plan and verbalizes understanding of instructions. She was given the opportunity to ask questions and all questions answered. Thank you for allowing me to participate in her care Medications: New omeprazole 20 mg PO DAILY 30 caps 3RF K21.9 - Gastro-esophageal reflux disease without esophagitis Coding Level of Care Code Est Pt Level 4 (26100) Complex EM visit Add On G2211 Diagnoses Ileocolitis K52.9 Postprandial abdominal bloating R14.0 Functional diarrhea K59.1 Diarrhea type: functional diarrhea Slow transit constipation K59.01 Constipation type: slow transit constipation Gastroesophageal reflux disease without esophagitis K21.9 Esophagitis presence: without esophagitis Time Spent (min) 40 Comment 25 minutes spent with patient and additional 15 minutes spent reviewing her records
[2024-10-26 13:51] VITALS: BP 112/70; PULSE 80; O2SAT 99; BMI 27.6
--- OUTSIDE RECORDS SUMMARY | 2024-10-26 17:27 | XMS_ITS | Clinical Summary ---
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 Name Role Phone Jefe Luna MD Primary Care Provider Allergies No known active allergies Medications LYRICA 100 mg capsule 06/10/2023 Active buspirone HCl (BUSPIRONE ORAL) 05/15/2022 Ac tive Active Problems Problem Noted Date Diagnosed Date Disorder of sacrum 05/05/2024 Encounters Date Type Department Care Team Description 09/30/2024 8:40 AM EDT Telemedicine - audio only [facility] [address] [place] [address] [place] [address] Kevin Hicks MD Disorder of sacrum (Primary Dx) 09/22/2024 1:11 PM EDT - 09/22/2024 11:59 PM EDT Hospital Encounter [address] [address] Kevin Hicks MD Discharge Disposition: Home or Self Care 09/22/2024 1:00 PM EDT Procedure visit [facility] [address] [address] Kevin Hicks MD Disorder of sacrum (Primary Dx) 09/02/2024 10:20 AM EDT Telemedicine - audio only [facility] [address] [place] [address] [place] [id number] Kevin Hicks MD Disorder of sacrum (Primary Dx) from Last 3 Months Social History Tobacco Use Types Packs/Day Years [...] 04/13/2024 9:33 AM EST Plan of Treatment Health Maintenance Due Date Last Done Comments Adult Td,Tdap Booster 1977 LIPID PANEL 1977 DEPRESSION SCREENING 1989 SMOKING Hx and SMOKELESS TOB ACCO SCREENING 1990 HEPATITIS C SCREENING 1995 HIV ONE-TIME SCREENING (18-6 5 YEARS) 1995 PAP SMEAR 1998 SCREENING FOR DIABETES 01/19/2012 MAMMOGRAM 2017 COLOGUARD 2022 COLONOSCOPY 2022 COLORECTAL CANCER SCREENING 2022 FIT TEST 2022 FOBT 2022 SIGMOIDOSCOPY 2022 VIRTUAL COLONOSCOPY 2022 INFLUENZA VACCINE (#1) 2024 COVID-19 VACCINE ( - 2023-2 5 season) 2024 HEPATITIS A VACCINES Aged Out No long [...] topic Medical Devices Not on file Insurance Diet TV PPO Diet TV PPO Diet TV PPO Diet TV PPO Diet TV PPO 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 It is not the complete legal health record.[facility]
== END 2024-10-26 14:06 | disposition home or self-care (01) ==
LOC: HO.HGI 13:44
PROVIDERS: PCP Internal Medicine; Visit Provider Nurse Practitioner Family
DX: K52.9 Noninfective gastroenteritis and colitis, unspecified (principal); R14.0 Abdominal distension (gaseous); K59.01 Slow transit constipation; K21.9 Gastro-esophageal reflux disease without esophagitis
CPT/HCPCS: 99214; G2211

== ENCOUNTER 2024-12-12 08:21 | Outpatient (AMB) | payer OTHER, SELFPAY ==
--- NOTE | 2024-12-12 08:16 | MHC.PC.OV ---
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 Required: No Accompanied by: Self / Same As Patient Allergies ciprofloxacin (From CIPRO) Allergy (Severe, Verified 12/12/24 08:16) SWELLING AND NUMBNESS Medication List - Last Reconciled 12/12/24 by WILL Braswell albuterol sulfate 90 mcg/actuation 2 puffs inhalation QID PRN budesonide-formoterol 160-4.5 mcg/actuation (Symbicort) 2 puffs inhalation BID 30 days buspirone 5 mg PO BID PRN cholecalciferol (vitamin D3) 50 mcg PO DAILY inhalational spacing device (Aerochamber Plus Flow-Vu) As directed ipratropium-albuterol 0.5 mg-3 mg(2.5 mg base)/3 mL mL inhalation BID PRN loperamide 2 mg PO Q6H PRN nebulizers As directed omeprazole 20 mg PO DAILY ondansetron 4 mg PO Q8H 3 days pregabalin 100 mg PO TID Tobacco use date assessed: 06/10/24 Dental Screening Dental Screen Date: 06/10/24 HPI HPI Comments History of Present Illness Details 49-year-old female with history of vitamin-D deficiency, asthma, anxiety presenting to the office today for annual physical exam. She currently lives with her and 3 sons and feels safe there. 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 No alcohol use, cigarette smoking, illicit drug use or marijuana. She reports following a healthy diet, has been eliminating triggering foods given recent episode of salmonella. Exercises routinely with weightlifting. Asthma- related to environmental allergens. No longer following with pulmonology. Using Symbicort for maintenance. Occasional albuterol/nebulizer use. No recent exacerbation Anxiety-uses buspirone 5 mg twice daily as needed Recent salmonella infection-diagnosed 06/2024. Treated with still has diarrhea. Has been following with Gastroenterology and recently had endoscopy and colonoscopy with negative biopsies and was negative for H pylori. She has been using a pre and probiotic as well as drinking [place]. Avoid triggering foods. Loperamide and ondansetron as needed. Demyelinating disease-reports this is a form of MS, unclear of exact diagnosis. Follows with Neurology at [facility] (Dr. Lawson) as well as physiatry at [facility] (Dr. Kevin Hicks). On Lyrica. Received cortisone injections Concerns: Pain over the L MCP joint-ongoing for about a month. Denies any injury. Attributes this to typing at work Recent salmonella infection-diagnosed in June with symptoms ongoing for several months. Was treated with antibiotics. She does still have some diarrhea but is following with Gastroenterology. Recent endoscopy and colonoscopy negative for any significant abnormality. She has eliminated certain foods and has been following a healthy diet and is taking a pre and probiotic as well as consuming kefir with some improvement in symptoms. Health maintenance: Last screening mammogram 05/2024 without evidence of malignancy. One year follow-up. Last colonoscopy 09/2024, 10 year follow-up advised, Dr. Fernández Last Pap 08/2020 with 5 year follow-up advised. S/p partial hysterectomy. 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 No sore throat, nasal congestion, rhinorrhea, sinus pain, ear pain. No hearing loss Neck - no adenopathy Cardiovascular: No chest pain, palpitations, or leg edema Respiratory: No shortness of breath, wheezing, cough Breast: No pain, palpable lumps, nipple inversion GI: No dysphagia, odynophagia, globus sensation. No abdominal pain, nausea, vomiting, constipation, melena, hematochezia. See HPI : No dysuria, hematuria, increased urinary frequency, decreased urinary output. 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 See HPI Neuro: No headaches, weakness, paresthesias Psych: no depression/anxiery. No AH/VH. No SI/HI Skin: No rashes or lesions EXAM: Constitutional - Awake and Alert, No apparent distress Eyes - PERRLA, EOMI. Anicteric Ears - external ears normal, canals clear, TMs intact and pearly jacobs with good cone of light Nose- septum midline, nares clear, no sinus tenderness Mouth/throat- mucosa moist, tongue and uvula midline, no erythema/edema or tonsillar adenopathy. Neck-trachea midline, thyroid symmetric without palpable nodules, no adenopathy Cardiovascular - S1S2, RRR, No edema Respiratory - Normal lung expansion, Normal respiratory effort, No respiratory distress, CTA bilaterally Gastrointestinal - NT / ND; +BS; No rebound or guarding - No CVA tenderness Extremities - no calf tenderness bilaterally, no swelling Musculoskeletal - Normal inspection, normal ROM. Tenderness to palpation over the thenar aspect and 1st MCP joint of the left hand Skin - Warm/Dry, no concerning lesions Neurological - Alert & oriented x3, CN II-XII in tact, 5/5 strength BUE and BLE, 2+ patellar reflexes, sensation intact Psychological - Appropriate affect PFSH Medical History Vitamin D deficiency Demyelinating disease Chronic allergic rhinitis Asthma Cervical dysplasia Vaginal lump Complex ovarian cyst Kidney stone Surgical History History of esophagogastroduodenoscopy (EGD) Hx of cystoscopy Hx of lithotripsy H/O colonoscopy (09/16/24) H/O LEEP H/O: hysterectomy Family History Mother Asthma Maternal Aunt Breast cancer Maternal Grandmother Breast cancer Social History Household Members: Spouse and Children Housing: House Alcohol intake: current Alcohol intake frequency: holidays/special occasions only Patient Tobacco Use Status: Never used Tobacco e-Cigarette/Vaping Use: Never Used service: No Current occupational status: employed 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 Chuy Murillo, Nolvia Zamora, Gurmeet Ramos and colleagues, with an educational alfonso from [email or web address]. Physical exam (Primary Care) Vital Signs: Last Vital Signs Temp 98.2 F 12/12/24 08:32 Pulse 83 12/12/24 08:32 Resp 18 12/12/24 08:32 BP 100/64 12/12/24 08:32 Pulse Ox 98 12/12/24 08:32 Oxygen Delivery Method Room Air 12/12/24 08:32 BMI result Body Mass Index 27.1 Tobacco/Smoking Status: Tobacco use Status Tobacco use date assessed 06/10/24 12/12/24 08:17 Patient Tobacco Use Status Never used Tobacco 12/12/24 08:17 e-Cigarette/Vaping Use Never Used 12/12/24 08:17 Thrive Assessment: Date of Thrive Assessment Date Thrive assessed 06/10/24 12/12/24 08:17 Coding Level of Care Code Est Pt Prev Care 40-64y(60669) Diagnoses Routine medical exam Z00.00 Moderate persistent asthma without complication J45.40 Asthma severity: moderate Asthma persistence: persistent Asthma complication type: uncomplicated Demyelinating disease G37.9 Anxiety F41.9 Thumb tendonitis M77.8 Assessment & Plan Assessment & Plan (1) Routine medical exam: Code(s): Z00.00 - Encounter for general adult medical examination without abnormal findings Category: Medical Plan: 49-year-old female presenting for annual physical exam. Plan as below (2) Asthma: Code(s): J45.909 - Unspecified asthma, uncomplicated Category: Medical Qualifiers: Asthma severity: moderate Asthma persistence: persistent Asthma complication type: uncomplicated Qualified Code(s): J45.40 - Moderate persistent asthma, uncomplicated Plan: Stable, no recent exacerbation. Continue Symbicort, albuterol p.r.n.. Recommend antihistamine to help with seasonal allergies which may be triggering (3) Demyelinating disease: Code(s): G37.9 - Demyelinating disease of central nervous system, unspecified Category: Medical Plan: Records requested from Renee Nunes. Continue Lyrica 100 mg t.i.d. as prescribed. Continue following with Neurology/physiatry (4) Anxiety: Code(s): F41.9 - Anxiety disorder, unspecified Category: Medical Plan: Stable. Continue BuSpar (5) Thumb tendonitis: Code(s): M77.8 - Other enthesopathies, not elsewhere classified Category: Medical Plan: Ibuprofen and ice as needed. Recommend wrist support bar to help with typing which will secondarily help support the thumb. Referred to occupational therapy Plan Reviewed last labs 06/2024. Due for lipid panel which is ordered. Also due for vitamin-D level given significant deficiency in May Continue with screening mammograms, Pap smears, colonoscopies Continue following for annual skin exams and use sun protection Annual eye exams Twice yearly dental exams Wear seat belt in car Recommend regular exercise and healthy diet Follow-up in 1 year for annual exam Orders: Orders Vitamin D 25-OH Total Today E55.9 - Vitamin D deficiency, unspecified, Z13.220 - Encounter for screening for lipoid disorders OT Evaluation and Treatment Today M77.8 - Other enthesopathies, not elsewhere classified Lipid Panel Today E55.9 - Vitamin D deficiency, unspecified, Z13.220 - Encounter for screening for lipoid disorders Medications: New ibuprofen 600 mg PO Q6H PRN 90 tabs 0RF pain
[2024-12-12 08:32] VITALS: BP 100/64; PULSE 83; RESP 18; TEMP 36.8; O2SAT 98; BMI 27.1
--- OUTSIDE RECORDS SUMMARY | 2024-12-12 08:39 | XMS_ITS | Clinical Summary ---
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 Name Role Phone Jefe Luna MD Primary Care Provider Allergies No known active allergies Medications LYRICA 100 mg capsule 06/10/2023 Active buspirone HCl (BUSPIRONE ORAL) 05/15/2022 Ac tive Active Problems Problem Noted Date Diagnosed Date Disorder of sacrum 05/05/2024 Encounters Date Type Department Care Team Description 09/30/2024 8:40 AM EDT Telemedicine - audio only [facility] [address] [place] [address] [place] [address] Kevin Hicks MD Disorder of sacrum (Primary Dx) 09/22/2024 1:11 PM EDT - 09/22/2024 11:59 PM EDT Hospital Encounter [address] [address] Kevin Hciks MD Discharge Disposition: Home or Self Care 09/22/2024 1:00 PM EDT Procedure visit [facility] [address] [address] Kevin Hicks MD Disorder of sacrum (Primary [...] 2022 INFLUENZA VACCINE (#1) 2024 COVID-19 VACCINE (2024-2 6 season) 2024 HEPATITIS A VACCINES Aged Out [...] topic Medical Devices Not on file Insurance [employer] PPO GENERIC COMMERCIAL GENERIC COMMERCIAL [employer] PPO GENERIC COMMERCIAL [employer] [facility] GENERIC COMMER[facility] [employer] [facility] GENERIC COMM[facility] P[facility] GENERIC COMMERCIAL Care Teams Real Estate Leasing Manager Relationship Specialty Start Date End Date Jefe Luna MD [address] [place] [address] [place] [address] PCP - General Internal Medicine 09/04/23 Additional Source Comments The information contained in this document represents components of the legal health record. It is not the complete legal health record.[facility]
== END 2024-12-12 09:03 | disposition home or self-care (01) ==
LOC: HO.HMCHD 08:22
PROVIDERS: PCP Physician Assistant; Visit Provider Physician Assistant
DX: Z00.00 Encounter for general adult medical examination without abnormal findings (principal); J45.40 Moderate persistent asthma, uncomplicated; G37.9 Demyelinating disease of central nervous system, unspecified; F41.9 Anxiety disorder, unspecified; M77.8 Other enthesopathies, not elsewhere classified

== ENCOUNTER 2024-12-12 09:04 | Outpatient (REF) | payer OTHER, SELFPAY ==
[2024-12-12 10:43] LABS: Cholesterol 194 mg/dL (<200); HDL Cholesterol 60 mg/dL (>40); Triglycerides 109 mg/dL (<150)
== END 2024-12-12 09:05 | disposition home or self-care (01) ==
LOC: HO.10HDL 09:04
PROVIDERS: Visit Provider Physician Assistant
DX: Z13.220 Encounter for screening for lipoid disorders (principal); E55.9 Vitamin D deficiency, unspecified; Z13.6 Encounter for screening for cardiovascular disorders
CPT/HCPCS: 36415; 80061; 82306